=== PATIENT | male | born 1960 | race Caucasian/White ===

== ENCOUNTER 2022-03-28 05:38 | Day surgery (SDC) | payer MEDICARE ==
--- NOTE | 2022-03-25 08:51 | NUR ---
PT UNABLE TO GIVE ACCUTE LIST OF MEDICATIONS EVEN AFTER BEING ASK TO BRING A LIST. RECEIVED ACTIVE MEDICATION LIST FROM PHARMACY. REQUEST TO PCP FOR MEDICATION LIST, HAVE NOT RECEIVED AT THIS TIME. CALL TO [facility] FOR CARDIO PROG NOTE ON 03-24-22 AND HAVE NOT RECEIVED OF THIS TIME, WILL CALL AGAIN TODAY.
--- NOTE | 2022-03-25 12:42 | NUR ---
RECEIVED CARDIOLOGY PROG NOTE. PT IS SEEN IN [facility] AND NOT [place] AFTER TALKING WITH [facility] MEDICAL RECORDS. PCP SENT PROG NOTE AND MEDICATIONS LIST UPDATE.
[~2022-03-28] VITALS: Ht 180.3 cm; Wt 113.6 kg
[~2022-03-28 05:38] MED LIST: ARTIFICIAL TEAR15 M6 OP; ASPIRIN-ACETAM1 EACH PO; COZAAR100 MG PO; DOCUSATE SODIU100 MG PO; DODEX1000 MCG/1; FENOFIBRATE54 MG PO; FLONASE SENSIM5.9 ML; FOLIC ACID1 MG PO; GABAPENTIN300 MG PO; HYDROCORTISONE20 MG PO; MAG-OXIDE400 MG PO; METOPROLOL TART50 MG PO; MULTIVITAMINS1 EAC7 PO; OMEPRAZOLE20 MG PO; OXYCODONE HCL5 MG PO; TORSEMIDE10 MG PO; ULORIC40 MG PO; VITAMIN B-1100 M1 PO; WARFARIN SODIUM3 MG PO; WARFARIN SODIUM4 MG PO; WARFARIN SODIUM5 MG PO
[2022-03-28] MEDS ORDERED: CRESTOR10 MG PO (06:18)
--- NOTE | 2022-03-28 08:15 | NUR ---
03/28/22 0815 Yolis Carbajal 0806 PATIENT ARRIVES TO PACU AWAKE BUT DROWSY. DENIES PAIN OR NAUSEA. ASKING/ANSWERING QUESTIONS APPROPRIATELY. RESP EVEN AND UNLABORED, ROOM AIR SATS >95%. DENIES NEEDS. 0810 HOB ELEVATED. SITTING UP DRINKING JUICE.
--- NOTE | 2022-04-02 15:04 | PATH ---
[facility] [address] [place], [place] [address] Signed SPECIMEN(S): A DUODENAL BIOPSY SPECIMEN(S): B ANTRUM/PYLORUS BIOPSY SPECIMEN(S): C PROXIMAL ESOPHAGEAL BIOPSY SPECIMEN SOURCE: A. DUODENAL BIOPSY B. ANTRUM/PYLORUS BIOPSY C. PROXIMAL ESOPHAGEAL BIOPSY CLINICAL HISTORY: GERD; episodic vomiting. Postop: Del Rosario's, chronic gastritis, erosive duodenitis FINAL PATHOLOGIC DIAGNOSIS: A. Duodenal biopsy: - Benign duodenal mucosa, negative for specific diagnostic abnormality. B. Antrum / pylorus biopsy: - Benign gastric-type mucosa with focal slight chronic inflammation. - Negative for evidence of Helicobacter organisms on routine HE stained sections. C. Proximal esophageal biopsy: - Benign gastric and esophageal mucosa with reactive features and mild chronic inflammation. - Negative for specialized intestinal metaplasia, or dysplasia. - Negative for significantly increased epithelial eosinophils within the esophageal epithelium. JVR:[id number] MICROSCOPIC EXAMINATION: Histologic sections of all submitted blocks are examined by light microscopy. These findings, together with the gross examination, support the pathologic diagnosis. GROSS DESCRIPTION: A. The specimen, labeled and designated "Jimmy Brian, " and designated on the requisition "duodenum biopsy," is received in formalin and consists of one steve soft tissue fragment that is 0.5 cm in greatest dimension. The specimen is entirely submitted in (A1). B. The specimen, labeled and designated "Severo W, " and designated on the requisition "antrum/pylorus biopsy," is received in formalin and consists of two steve soft tissue fragments that measure PATIENT NAME: VENUS BRIAN PATHOLOGY DATE OF : 58 REPORT #: [id number] PHYSICIAN: BRIA ESPOSITO PCP: DILLON JETT MD REPORT IS CONFIDENTIAL AND NOT TO BE RELEASED WITHOUT AUTHORIZATION [facility] [address] [place], [place] [address] Signed 0.3 and 0.6 cm in greatest dimension. The specimen is entirely submitted in (B1). C. The specimen, labeled and designated "Jimmy Brian, " and designated on the requisition "proximal esophagus biopsy," is received in formalin and consists of two white-steve soft tissue fragments that measure 0.3 and 0.6 cm in greatest dimension. The specimen is entirely submitted in (C1). FB (under the direct supervision of a pathologist) The Gross Description was prepared using a voice recognition system. The report was reviewed for accuracy; however, sound-alike word errors, addition and/or deletions may occur. If there is any question about this report, please contact Client Services. PERFORMING LABORATORY: The technical component was performed by [facility], [address] [place] [id number] (CLIA# [id number]). Professional interpretation was performed by [facility] - [facility], [address] [place] [id number] (CLIA#: [id number]). Diagnostician: Russel Álvarez MD Pathologist Electronically Signed 04/02/2022 Copies: ~ PATIENT NAME: VENUS BRIAN PATHOLOGY DATE OF : 58 REPORT #: [id number] PHYSICIAN: BRIA PATHOLOGY PCP: DILLON JETT MD REPORT IS CONFIDENTIAL AND NOT TO BE RELEASED WITHOUT AUTHORIZATION
--- NOTE | 2022-04-02 16:53 | OR ---
[facility] [address] [place], [place] [address] Signed DATE OF OPERATION: 03/28/2022 SURGEON: Thierno Hicks MD PREOPERATIVE DIAGNOSES: 1. Chronic alcoholism. 2. Mildly elevated liver enzymes. POSTOPERATIVE DIAGNOSES: 1. No evidence of esophageal varices. 2. Erosive duodenitis and antral gastritis. 3. 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 PROCEDURE: Esophagogastric duodenoscopy with biopsy. ANESTHESIA: Intravenous sedation, propofol; Jimmy Will CRNA INDICATIONS: This 61-year-old white man has chronic alcoholism, drinking alcohol on a long-standing daily basis. He is noted to have elevated liver enzymes and considered to have cirrhosis of the liver. He complains of episodic vomiting. He has occasional symptoms of reflux. He is on PPI medication. He has no associated dysphagia. He has not been taking Prilosec on a routine basis, only episodically. He is referred for upper endoscopy to better characterize his symptoms. He understands the risks of bleeding, infection, and perforation related to upper endoscopy and wished to proceed. FINDINGS: Erosive duodenitis was noted. Antral gastritis was also noted. He had a small amount of distal Del Rosario esophagus and patchy Del Rosario islands proximally. He had no esophageal varices. CLOtest was negative. DESCRIPTION OF PROCEDURE: The patient was brought to the endoscopy suite and placed in lateral decubitus position given intravenous sedation with propofol infusional technique with full cardiopulmonary monitoring. A bite block was placed. An Olympus video upper endoscope was passed into the hypopharynx. Vocal cords were normal. Scope was advanced to the esophagus, which showed no evidence of esophageal varices. Scope was easily passed into the stomach, which was insufflated with air. Rugal folds were normal. He did have antral gastritis. Electronically Signed By: THIERNO HICKS MD 04/02/22 1653 PATIENT NAME: VENUS BRIAN OPERATIVE REPORT DATE OF : 58 REPORT #: [id number] PHYSICIAN: THIERNO HICKS MD PCP: DILLON ESCALANTE MD REPORT IS CONFIDENTIAL AND NOT TO BE RELEASED WITHOUT AUTHORIZATION [facility] [address] [place], [place] [address] Signed Pylorus was normal. Scope was passed through into the duodenal, which showed erosive changes. There was no sign of actual ulcer. Biopsies were obtained. The scope was withdrawn. On the other hand, biopsies then taken of the antrum for both RUBY and pathologic testing. Retroflexed view showed a small hiatal hernia. The scope was straightened and withdrawn noted. Withdrawal of the scope showed patchy islands of Del Rosario esophagus at approximately 15-20 cm as well. These areas were biopsied. The scope was then removed. The patient taken to the recovery room in good condition. CONCLUDING DIAGNOSES: Longstanding alcoholism and presumptive cirrhosis of liver, but no evidence of portal hypertension manifesting as varices. 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 Erosive duodenitis and antral gastritis. PLAN: We would recommend daily use of Prilosec 20 mg a day and Carafate 1 g p.o. q.i.d. for at least four weeks. He will return to the ongoing care of Dr. Escalante. Quite obviously, he would be best served by cessation of all alcohol intake likely under a monitored program. Thierno Hicks MD JM/MODL /[id number] cc: Dillon Escalante MD Copies: DILLON ESCALANTE MD ~ Electronically Signed By: THIERNO HICKS MD 04/02/22 1653 PATIENT NAME: VENUS BRIAN OPERATIVE REPORT DATE OF : 58 REPORT #: [id number] PHYSICIAN: THIERNO HICKS MD PCP: DILLON ESCALANTE MD REPORT IS CONFIDENTIAL AND NOT TO BE RELEASED WITHOUT AUTHORIZATION
== END 2022-03-28 08:40 | disposition home or self-care (01) ==
LOC: OPS 05:38 → DS 05:38 → OPS 07:30 → DS 10:45 → OPS 10:45
PROVIDERS: ATTEND Surgery
PROC: 0DB98ZX Excision of Duodenum, Via Natural or Artificial Opening Endoscopic, Diagnostic (ICD-10-PCS; principal; 2022-03-28 07:30)
DX: K29.50 Unspecified chronic gastritis without bleeding (principal); K20.90 Esophagitis, unspecified without bleeding; K29.80 Duodenitis without bleeding; K22.70 Barrett's esophagus without dysplasia; K70.30 Alcoholic cirrhosis of liver without ascites; F10.20 Alcohol dependence, uncomplicated; K44.9 Diaphragmatic hernia without obstruction or gangrene; Z79.01 Long term (current) use of anticoagulants; I11.0 Hypertensive heart disease with heart failure; I50.9 Heart failure, unspecified; I42.0 Dilated cardiomyopathy; I48.91 Unspecified atrial fibrillation
CPT/HCPCS: J2704; J7121

== ENCOUNTER 2024-02-29 20:14 | Inpatient (IN) | payer MEDICARE ==
[~2024-02-29] VITALS: Ht 180.3 cm; Wt 116.0 kg
[~2024-02-29 20:14] MED LIST changes: +MULTI-DAY PLUS1 EAC1 PO; -MULTIVITAMINS1 EAC7 PO; +OXYCODONE HCL10 MG PO; -OXYCODONE HCL5 MG PO; +ROSUVASTATIN CA10 MG PO
--- OUTSIDE RECORDS SUMMARY | 2024-02-29 20:21 | XMS ---
PreManage Notification: VENUS BRIAN Security Cafeteria Attendant Events No recent Security Events currently on file CRITERIA MET - [facility] - 2 Visits in 30 Days CARE PROVIDERS There are no care providers on record at this time. Erickson has no Care Guidelines for this patient. Jeimy VISIT COUNT (12 MO.) 1 HEAVEN David TOTAL 2 NOTE: Visits indicate total known visits. ED/UCC VISIT TRACKING (12 MO.) 02/29/2024 20:15 [facility] [place] TYPE: Emergency COMPLAINT: - ABD PAIN 02/29/2024 17:26 [facility] TYPE: Emergency COMPLAINT: - BLOATED_bloated INPATIENT VISIT TRACKING (12 MO.) No inpatient visits to display in this time frame [email or web address]
[2024-02-29] MEDS ORDERED: METOPROLOL SUC100 MG PO (20:36)
[2024-02-29] MEDS ORDERED: FEBUXOSTAT40 MG PO (20:37)
[2024-02-29] MEDS ORDERED: ELIQUIS5 MG PO (20:37)
[2024-02-29 21:48] LABS: BASOPHILS 1.1 % (0-2); EOSINOPHILS 1.8 % (0-6); HEMATOCRIT 39.5 % (35.0-50.0); HEMOGLOBIN 13.6 g/dL (12.0-18.0); LYMPHOCYTES 20.6 % (24-44); MCH 32.7 (27-36); MCHC 34.3 g/dl (30-36); MCV 95.4 fl (81-99); MONOCYTES 9.5 % (0-12); PLATELET COUNT 237 K/uL (140-440); RBC 4.15 M/ul (4.3-5.7); RDW 14.4 (10.5-15.0)
[2024-02-29 22:01] LABS: INR 1.58 (0.80-1.30); PROTIME 18.5 Sec (11.2-14.2)
[2024-02-29 22:09] LABS: ALBUMIN/GLOBULIN RATIO 0.65 (1.1-2.4); ANION GAP 14.2 (7-21); BILIRUBIN, TOTAL 2.8 ng/dL (0.2-1.0); BUN/CREATININE RATIO 9.09 (6.0-28.6); CALCIUM 9.2 mg/dL (8.5-10.1); CREATININE, SERUM 2.09 mg/dL (0.70-1.30); POTASSIUM 4.2 mmol/L (3.5-5.1); PROTEIN, TOTAL 7.6 g/dL (6.4-8.2)
[2024-02-29] MEDS ORDERED: ALBUMIN HUMAN 25% 100 ML BTL IV ONE (23:45)
[2024-03-01] VITALS (10 sets, daily range): BP systolic 121–164; BP diastolic 69–97
[2024-03-01] MEDS ORDERED: LACTULOSE 20 GM/30 ML CUP PO ONE (01:30)
[2024-03-01] MEDS ORDERED: CIPROFLOXACIN 500 MG TAB PO ONE (01:45)
[2024-03-01] MEDS ORDERED: ondansetron HCL 4 MG/2 ML VIAL IV PRN ×2 (02:00→09:45)
--- NOTE | 2024-03-01 03:07 | NUR ---
RNs in room doing new admit work up. Patient began to get agitated. Help was offered but declined.
--- NOTE | 2024-03-01 03:10 | NUR ---
RECIEVED REPORT FROM ED RN. PATIENT ARRIVES VIA STRETCHER. PATIENT AMBULATES FROM STRETCHER TO BED WITHOUT DIFFICULTY. VITALS ASSESSED. PATIENT REPORTING A HEADACHE. ADMISSION COMPLETE WITH THE EXCEPTION OF THE PHYSICAL ASSESSMENT DUE TO PATIENT'S AGITATED/ANXIOUS BEHAVIOR. PATIENT IN BED. TO REDUCE STIMULUS, TURNED OFF LIGHTS PER PATIENT REQUEST. PATIENT DENIES ADDITIONAL NEEDS AT THIS TIME. BED ALARM ACTIVE. CALL LIGHT IN REACH.
[2024-03-01 03:17] LABS: APPEARANCE, BODY FLUID BLOODY; MONONUCLEAR CELLS, BODY FLUID 76; PMNS, BODY FLUID 24; RBC, BODY FLUID 139250; WBC, BODY FLUID 3375
--- NOTE | 2024-03-01 03:25 | NUR ---
PHONE CALL TO PROVIDER REGARDING PATIENT'S HEADACHE AND ANXIOUS BEHAVIOR. VERBAL ORDERS RECIEVED VERIFIED BY REPEAT BACK. ORDERS ENTERED.
[2024-03-01] MEDS ORDERED: ACETAMINOPHEN 325 MG TAB PO PRN (03:30)
--- NOTE | 2024-03-01 04:14 | NUR ---
IN ROOM RESPONDING TO BED ALARM. PATIENT UP TO GO TO THE BATHROOM. PATIENT AMBULATES TO THE BATHROOM AND BACK TO BED WITHOUT DIFFICULTY. PATIENT ABLE TO VOID WITHOUT DIFFICULT. PATIENT AGITATED/ANXIOUS BEHAVIOR HAS DECREASED WITH REST. PATIENT DENIES ADDITIONAL NEEDS AT THIS TIME. BED ALARM ACTIVE. CALL LIGHT IN REACH.
[2024-03-01 05:24] LABS: BASOPHILS 0.7 % (0-2); EOSINOPHILS 3.2 % (0-6); HEMATOCRIT 32.6 % (35.0-50.0); HEMOGLOBIN 11.3 g/dL (12.0-18.0); LYMPHOCYTES 23.3 % (24-44); MCH 32.7 (27-36); MCHC 34.7 g/dl (30-36); MCV 94.4 fl (81-99); MONOCYTES 10.7 % (0-12); NEUTROPHILS 62.1 % (39-80); PLATELET COUNT 152 K/uL (140-440); RBC 3.46 M/ul (4.3-5.7); RDW 14.3 (10.5-15.0)
--- NOTE | 2024-03-01 05:30 | NUR ---
IN ROOM RESPONDING TO CALL LIGHT. PATIENT UP TO THE BATHROOM. PATIENT PROVIDED WITH URINAL TO COLLECT NECESSESARY SAMPLE. PATIENT UNABLE TO VOID AT THIS TIME. PATIENT AMBULATED BACK TO BED WITHOUT DIFFICULTY. ASSESSMENT COMPLETED. PATIENT DENIES ADDITIONAL NEEDS AT THIS TIME. BED ALARM ACTIVE. CALL LIGHT IN REACH.
[2024-03-01 05:38] LABS: ALBUMIN 2.6 g/dL (3.4-5.0); ALBUMIN/GLOBULIN RATIO 0.7 (1.1-2.4); ANION GAP 10.7 (7-21); BILIRUBIN, TOTAL 2.2 ng/dL (0.2-1.0); BUN/CREATININE RATIO 10.63 (6.0-28.6); CALCIUM 8.4 mg/dL (8.5-10.1); CREATININE, SERUM 1.88 mg/dL (0.70-1.30); MAGNESIUM 1.9 mg/dL (1.8-2.4); POTASSIUM 3.7 mmol/L (3.5-5.1); PROTEIN, TOTAL 6.3 g/dL (6.4-8.2)
--- NOTE | 2024-03-01 08:36 | NUR ---
PATIENT IN BED AT THIS TIME. LINE TESTER WENT INTO PATIENTS ROOM FOR HOURLY ROUNDS. PATIENT STATED THAT HE HAS AN UPSET STOMACH AND NEEDED TO USE THE RESTROOM. LINE TESTER NOTIFIED RN ABOUT PATIENTS PAIN AND INSTRUCTED PATIENT TO VOID IN TOILET HAT TO GET URINE SAMPLE. PATIENT ENDED UP REMOVING BOTH HATS FROM TOILET AND THEN VOIDED INTO TOILET, RN WAS NOTIFIED. CALL LIGHT WITHIN REACH, BED ALARMS ON, NO FURTHER NEEDS AT THIS TIME.
[2024-03-01] MEDS ORDERED: LACTULOSE 20 GM/30 ML CUP PO SCH ×3 (09:00→21:00)
[2024-03-01] MEDS ORDERED: METOPROLOL SUCCINATE 50 MG TABCR PO SCH (09:00)
[2024-03-01] MEDS ORDERED: CEFTRIAXONE/SODIUM CHLORIDE 2 GM/100 ML PIGGYBACK IV SCH (09:00)
[2024-03-01] MEDS ORDERED: TORSEMIDE 5 MG TAB PO SCH (09:00)
--- NOTE | 2024-03-01 09:50 | NUR ---
Spoke with Arron. He states he lives in [place] across the [address] from his exwife. His and children assist him. He plans on return to home when he is cleared medically. He has cane. His family help him with housekeeping, shoping, transport. He does his own cooking. He has help with his utility bill and food stamps. He has enough food for the month. He denies needs. Pt remains cognitively somewhat off. He has difficulty answering questions and is easily confused when asked questions. He denies needs. Per Dr. Vaughn, pt will remain for a few days for medications.
--- NOTE | 2024-03-01 10:16 | NUR ---
PATIENT IN BED, UPHOLSTERY COVERS INSPECTOR CHARTED VITALS AND I&O'S. CALL LIGHT WITHIN REACH, NO FURTHER NEEDS AT THIS TIME.
[2024-03-01] MEDS ORDERED: GABAPENTIN300 MG PO (10:30)
[2024-03-01] MEDS ORDERED: FLUTICASONE PRO16 GM NAS (10:31)
[2024-03-01] MEDS ORDERED: VITAMIN D350 MC3 PO (10:33)
[2024-03-01] MEDS ORDERED: ARTIFICIAL TEAR15 M6 OU (10:33)
[2024-03-01] MEDS ORDERED: EXCEDRIN EXTRA1 EAC1 PO (10:36)
--- NOTE | 2024-03-01 10:45 | NUR ---
VISITED DURING SPIRITUAL CARE ROUNDS. PT APPEARED TO BE SLEEPING. DID NOT DISTURB. PROVIDED PRAYER.
[2024-03-01] MEDS ORDERED: METOPROLOL SUCCINATE 100 MG TABCR PO SCH (11:08)
[2024-03-01] MEDS ORDERED: PHARMACY RENAL DOSE ADJUSTMENT 1 DOSE MISC PO SCH (12:00)
--- NOTE | 2024-03-01 12:24 | NUR ---
PATIENT IN BED, TELEVISION MAINTENANCE MAN WENT INTO PATIENTS ROOM FOR HOURLY ROUNDS. CALL LIGHT WITHIN REACH, NO FURTHER NEEDS.
--- NOTE | 2024-03-01 13:01 | NUR ---
UR CLINICAL REVIEW: 2MN LISSETH, MEETS INPT CRITERIA. MEDICARE FROM OBS TO INPT 03/01/24 @ 0911 ORDER MATCHES REG AUTH NOT REQUIRED PER MEDICARE RULES PLAN TO DC TO HOME WHEN MEDICALLY STABLE.
[2024-03-01 13:13] LABS: BILIRUBIN, URINE NEGATIVE (negative); BLOOD/HGB, URINE NEGATIVE (Negative); KETONE, URINE NEGATIVE (Negative); LEUK ESTERASE, URINE NEGATIVE (negative); NITRITE, URINE NEGATIVE (negative)
--- NOTE | 2024-03-01 13:25 | NUR ---
PT RESTING IN BED, STATES HE "WANTS TO NAP". CALL LIGHT WITHIN REACH, NO REQUESTS AT THIS TIME.
[2024-03-01 13:34] LABS: AMPHETAMINES, URINE NEGATIVE (NEGATIVE); BARBITURATES, URINE NEGATIVE (NEGATIVE); BENZODIAZEPINE, URINE NEGATIVE (NEGATIVE); BUPRENORPHINE, URINE NEGATIVE (NEGATIVE); CANNABINOID, URINE NEGATIVE (NEGATIVE); COCAINE, URINE NEGATIVE (NEGATIVE); ECSTASY, URINE NEGATIVE (NEGATIVE); FENTANYL, URINE NEGATIVE (NEGATIVE); METHADONE, URINE NEGATIVE (NEGATIVE); OPIATES, URINE POSITIVE (NEGATIVE); OXYCODONE, URINE POSITIVE (NEGATIVE); PHENCYCLIDINE, URINE NEGATIVE (NEGATIVE)
[2024-03-01] MEDS ORDERED: TORSEMIDE20 MG PO (13:36)
--- NOTE | 2024-03-01 13:36 | NUR ---
MED REC COMPLETE
[2024-03-01] MEDS ORDERED: ALBUMIN HUMAN 25% 100 ML BTL IV SCH ×4 (14:00→22:00)
--- NOTE | 2024-03-01 14:15 | NUR ---
PATIENT IN BED AT THIS TIME. BILINGUAL SPEECH LANGUAGE PATHOLOGIST CHARTED VITALS AND I&O'S, PATIENT WANTED LUNCH TRAY LEFT IN ROOM. CALL LIGHT WITHIN REACH, NO FURTHER NEEDS AT THIS TIME.
--- NOTE | 2024-03-01 17:04 | NUR ---
PT AMBULATED TO RESTROOM WITH SBA. PT URINATED AND PASSED GAS. PT BACK TO BED WITH FAMILY AT BEDSIDE. CALL LIGHT WITHIN REACH, NO REQUESTS AT THIS TIME.
--- NOTE | 2024-03-01 19:05 | NUR ---
RECIEVED REPORT FROM DAYSNCFT RN. PATIENT LAYING IN BED ON BACK WITH EYES CLOSED. RESPIRATIONS EVEN AND ULABORED. TELE #[address], A-FIB RHYTHM. NO NEEDS IDENTIFIED AT THIS TIME. BED ALARM ACTIVE. CALL LIGHT IN REACH.
[2024-03-01] MEDS ORDERED: MELATONIN 3 MG TAB PO SCH ×2 (21:00)
--- NOTE | 2024-03-01 23:04 | NUR ---
IN ROOM TO ADMINISTER MEDICATIONS, SEE E-MAR. PATIENT TELEMETRY LEADS REATTACHED. PATIENT RESTING IN BED WITH EYES CLOSED. PATIENT DENIES ADDITIONAL NEEDS AT THIS TIME. CALL LIGHT IN REACH. BED ALARM ACTIVE.
[2024-03-02] VITALS (9 sets, daily range): BP systolic 123–146; BP diastolic 70–89
--- NOTE | 2024-03-02 00:20 | NUR ---
IN ROOM TO ROUND ON PATIENT. IV MEDICATION INFUSION COMPLETED. PATIENT RESTING ON BACK WITH EYES CLOSED. RESRPIRATIONS EVEN AND UNLABORED. TELE #[address], A-FIB, HR 80s. NO NEEDS IDENTIFIED AT THIS TIMES. CALL LIGHT IN REACH. BED ALARM ACTIVE.
--- NOTE | 2024-03-02 01:20 | NUR ---
BED ALARM SOUNDING. PT UP TO BR WITH MINIMAL SBA TO VOID AND HAVE XL LIQUID BM. GAIT STEADY. BACK TO BED, LINDA WELL. NO FURTHER NEEDS. BED ALARM IN PLACE.
--- NOTE | 2024-03-02 02:50 | NUR ---
IN ROOM TO ROUND ON PATIENT. PATIENT RESTING IN BED WITH EYES CLOSED. RESPIRATIONS EVEN AND UNLABORED. NO NEEDS IDENTIFIED AT THIS TIME. TELE #[address] BED ALARM ACTIVE. CALL LIGHT IN REACH.
--- NOTE | 2024-03-02 05:33 | NUR ---
IN ROOM TO ASSESS PATIENT. ASSESSMENT COMPLETED. PATIENT AMBULATED TO THE BATHROOM AND BACK TO BED WITHOUT DIFFICULTY. VITALS COMPLETE. PATIENT DENIES ADDITIONAL NEEDS AT THIS TIME. TELE #[address] CALL LIGHT IN REACH. BED ALARM ACTIVE.
[2024-03-02 05:34] LABS: BASOPHILS 0.9 % (0-2); EOSINOPHILS 3.4 % (0-6); HEMATOCRIT 30.2 % (35.0-50.0); HEMOGLOBIN 10.5 g/dL (12.0-18.0); LYMPHOCYTES 27.4 % (24-44); MCH 32.7 (27-36); MCHC 34.8 g/dl (30-36); MCV 94.1 fl (81-99); MONOCYTES 10.6 % (0-12); NEUTROPHILS 57.7 % (39-80); PLATELET COUNT 117 K/uL (140-440); RBC 3.21 M/ul (4.3-5.7); RDW 14.7 (10.5-15.0)
[2024-03-02 05:50] LABS: ALBUMIN 3.7 g/dL (3.4-5.0); ALBUMIN/GLOBULIN RATIO 1.61 (1.1-2.4); ANION GAP 12.4 (7-21); BILIRUBIN, TOTAL 1.9 ng/dL (0.2-1.0); BUN/CREATININE RATIO 12.15 (6.0-28.6); CALCIUM 8.7 mg/dL (8.5-10.1); CREATININE, SERUM 1.81 mg/dL (0.70-1.30); MAGNESIUM 1.9 mg/dL (1.8-2.4); PHOSPHORUS, INORGANIC 3.9 mg/dL (2.5-4.9); POTASSIUM 3.4 mmol/L (3.5-5.1)
--- NOTE | 2024-03-02 05:53 | NUR ---
IN ROOM RESPONDING TO CALL LIGHT. PATIENT STATES DRESSING TO ABDOMEN IS "ITCHY AND MAKING MY SKIN BURN". OPEN SORE FROM PATIENT SCRATCHING AT TAPE PRESENT ON MIDDLE ABDOMEN. DRESSING AND TAPE FROM PARACENTISIS REMOVED. PUNCTURE SITE AND OTHER SCABS ON ABDOMEN TREATED WITH TRIPLE ANTIBIOTIC OINTMENT AND LEFT OPEN TO AIR PER PATIENT'S REQUEST. PATIENT DENIES ADDITIONAL NEEDS AT THIS TIME. CPOX IN PLACE. TELE #[address] CALL LIGHT IN REACH. BED ALARM ACTIVE.
--- NOTE | 2024-03-02 07:15 | NUR ---
ASSESSMENT COMPLETE. PT SITTING IN BED WITH NO REQUESTS. CALL LIGHT WITHIN REACH.
--- NOTE | 2024-03-02 07:59 | NUR ---
PATIENT SLEEPING IN BED AT THIS TIME. SHUTTLE ROUTE VEHICLE OPERATOR WENT INTO PATIENTS ROOM FOR HOURL ROUNDS. CALL LIGHT WITHIN REACH, NO FURTHER NEEDS AT THIS TIME.
[2024-03-02] MEDS ORDERED: POTASSIUM CHLORIDE 10 MEQ TABCR PO ONE (08:00)
--- NOTE | 2024-03-02 08:15 | NUR ---
PT AMBULATED TO RESTROOM WITH SBA, TOLERATED WELL. PT SITTING AT SIDE OF BED EATING BREAKFAST, NO REQUESTS AT THIS TIME. CALL LIGHT WITHIN REACH.
--- NOTE | 2024-03-02 09:45 | NUR ---
Pt sleeping, not awakened. NO change in plan for CM at this time. Per 8:30 meeting pt will need [address] Banuelos report.
--- NOTE | 2024-03-02 10:10 | NUR ---
PT RESTING IN BED WITH EYES CLOSED. RESPIRATIONS EVEN AND UNLABORED. BED ALARM ON AND CALL LIGHT WITHIN REACH.
--- NOTE | 2024-03-02 11:24 | NUR ---
PT NOT AVAILABLE FOR VISIT. PROVIDED PRAYER.
--- NOTE | 2024-03-02 12:38 | NUR ---
PT RESTING IN BED. LUNCH AT BEDSIDE TABLE. PT STATES HE WANTS TO WAIT "A FEW MINUTES" TO EAT. NO REQUESTS AT THIS TIME.
--- NOTE | 2024-03-02 13:00 | NUR ---
ASKED PT IF HE WOULD TAKE A WALK IN THE WOOD, PT DECLINED. PT UP AMBULATING TO RESTROOM AND BACK IN ROOM.
--- NOTE | 2024-03-02 14:46 | NUR ---
PATIENT IN BED AT THIS TIME. OPERATIONS SUPPORT REPRESENTATIVE CHARTED VITALS AND I&O'S. CALL LIGHT WITHIN REACH, NO FURTHER NEEDS AT THIS TIME.
--- NOTE | 2024-03-02 14:56 | NUR ---
PT'S 1500 MED HELD AT THIS TIME SINCE PT IS NPO FOR ABD .
--- NOTE | 2024-03-02 16:00 | NUR ---
ABD US COMPLETED. PT RESTING IN BED WATCHING TV, BUT AMBULATES TO AND FROM RESTROOM. CALL LIGHT WTIHIN REACH AND BED ALARM ON.
--- NOTE | 2024-03-02 17:48 | EKG ---
[facility] [address] [facility] [place] [address] Signed Atrial fibrillation Low voltage QRS Possible Inferior infarct , age undetermined Abnormal ECG When compared with ECG of 24-MAR-2022 10:00, Borderline criteria for Inferior infarct are now present Nonspecific T wave abnormality now evident in Inferior leads Nonspecific T wave abnormality now evident in Anterior leads Confirmed by Alexei Vaughn MD ([id number]) on 03/02/2024 5:48:51 PM Electronically Signed By: ALEXEI VAUGHN MD 03/02/24 1748 PATIENT NAME: VENUS BRIAN Electrocardiogram DATE OF : 58 PHYSICIAN: ALEXEI VAUGHN MD REPORT #: [id number] REPORT IS CONFIDENTIAL AND NOT TO BE RELEASED WITHOUT AUTHORIZATION
[2024-03-02] MEDS ORDERED: METOPROLOL TARTRATE 50 MG TAB PO ONE (18:00)
[2024-03-02] MEDS ORDERED: METOPROLOL TARTRATE 5 MG/5 ML VIAL IV ONE (18:00)
--- NOTE | 2024-03-02 18:15 | NUR ---
CALLED DR ROMAN REGARDING INCREASING HR. ORDERED IV AND PO METOPROLOL
--- NOTE | 2024-03-02 19:13 | NUR ---
Pt report received from JACK Yun. Pt is A&O, resting supine in bed with HOB elevated, television on. White board updated. Pt has several questions for the doctor and agrees to address them in the morning if the doctor does not come to the floor this evening. Pt states that he uses an "inhaler" at home when he gets short of breath, like he experienced earlier on day shift. He also states that he takes 100mg metoprolol, extended release, daily. He expressed concern about making sure his automotive alignment specialist shouldn't be made aware of his stay here. Pt denies further needs at this time. Call light in reach.
[2024-03-02] MEDS ORDERED: APIXABAN 5 MG TAB PO SCH (21:00)
--- NOTE | 2024-03-03 00:26 | NUR ---
bedside report received from kate carolina, pt awake and recently up to bathroom to void. bed alarm on and call light in reach. various scabs noted to abd, pt states scabs from, "the blisters". abd tight overall with distention, no tenderness noted with palpation. on ra, rr even and unlabored. tele #[address], afib per monitor with hr 80's.
--- NOTE | 2024-03-03 02:37 | NUR ---
ROUNDED ON pt, pt RESTING IN BED. ON RA, RR EVEN AND UNLABORED. NO DISTRESS NOTED. TELE REMAINS IN PLACE, HX AFIB. FOCUSED ABD ASSESSMENT COMPLETE, NO ACUTE CHANGES FROM START OF THIS RN'S CARE. BED ALARM ON AND CALL LIGHT IN REACH. pt DENIES NEEDS OR CONCERNS.
--- NOTE | 2024-03-03 03:08 | NUR ---
pt REQUESTING REMAINING FLUID FROM FLUID RESTRICTION, pt VERBALIZED UNDERSTANDING. pt THEN UP SBA TO BATHROOM TO HAVE BM AND VOID, pt VOIDED 400MLS URINE OUTPUT. pt BACK IN BED, ALARM RESUMED. CALL LIGHT IN REACH.
--- NOTE | 2024-03-03 04:46 | NUR ---
ROUNDED ON pt, pt RESTING IN BED WITH EYES CLOSED. ON RA, RR EVEN AND UNLABORED. BED ALARM REMAINS ON FOR SAFETY AND CALL LIGHT IN REACH.
[2024-03-03 05:31] LABS: BASOPHILS 0.2 % (0-2); EOSINOPHILS 3.6 % (0-6); HEMATOCRIT 34.6 % (35.0-50.0); HEMOGLOBIN 11.8 g/dL (12.0-18.0); LYMPHOCYTES 21.4 % (24-44); MCH 32.6 (27-36); MCHC 34.2 g/dl (30-36); MCV 95.4 fl (81-99); MONOCYTES 8.2 % (0-12); NEUTROPHILS 66.6 % (39-80); PLATELET COUNT 123 K/uL (140-440); RBC 3.63 M/ul (4.3-5.7); RDW 14.7 (10.5-15.0)
--- NOTE | 2024-03-03 05:32 | NUR ---
pt BACK IN BED FOLLOWING BM AND VOID. BED ALARM RESUMED AND CALL LIGHT IN REACH. I&O'S COLLECTED. pt DENIES ADDITIONAL NEEDS OR CONCERNS, CREDIT ADVISOR IN ROOM FOR AM VITALS.
[2024-03-03 05:36] VITALS: BP 138/78
[2024-03-03 06:00] LABS: ALBUMIN 3.6 g/dL (3.4-5.0); ALBUMIN/GLOBULIN RATIO 1.33 (1.1-2.4); ANION GAP 11.7 (7-21); BILIRUBIN, TOTAL 1.7 ng/dL (0.2-1.0); BUN/CREATININE RATIO 11.37 (6.0-28.6); CREATININE, SERUM 1.67 mg/dL (0.70-1.30); MAGNESIUM 1.9 mg/dL (1.8-2.4); PHOSPHORUS, INORGANIC 3.8 mg/dL (2.5-4.9); POTASSIUM 3.7 mmol/L (3.5-5.1); PROTEIN, TOTAL 6.3 g/dL (6.4-8.2)
--- NOTE | 2024-03-03 06:23 | NUR ---
pt HAD UNEVENTFUL NIGHT, SLEPT OFF AND ON THIS SHIFT. BED ALARM ON TO ENSURE SAFETY, pt FAIRLY STEADY ON FEET-SBA. IMPULSIVE AT TIMES WHEN GETTING OOB. VSS, ON RA. ON 2GM SODIUM DIET WITH 2L FLUID RESTRICTION, TOLERATING WELL. NO S/SX OF ETOH WITHDRAWL. A/O TO ALL BUT DATE, REORIENTS EASILY. IV SITE WNL, SALINE LOCKED.
--- NOTE | 2024-03-03 07:10 | NUR ---
RECIEVED SHIFT REPORT. PT IS RESTING IN BED, EYES CLOSED, BREATHING EVEN AND UNLABORED. CALL WITHIN REACH.
[2024-03-03] MEDS ORDERED: METOPROLOL SUCCINATE 100 MG TABCR PO SCH (09:00)
[2024-03-03] MEDS ORDERED: ALBUMIN HUMAN 25% 100 ML BTL IV SCH (09:00)
[2024-03-03] MEDS ORDERED: LACTULOSE 20 GM/30 ML CUP PO SCH (09:00)
[2024-03-03 09:59] VITALS: BP 138/81
[2024-03-03] MEDS ORDERED: LOSARTAN POTASSIUM 100 MG TAB PO SCH (10:24)
[2024-03-03] MEDS ORDERED: POTASSIUM CHLORIDE 10 MEQ TABCR PO ONE (10:30)
[2024-03-03] MEDS ORDERED: FUROSEMIDE 40 MG/4 ML VIAL IV ONE (10:30)
--- NOTE | 2024-03-03 11:59 | NUR ---
THIS MORNING WHEN I WENT IN TO UPDATE THE WHITE BOARD PATIENT WAS SLEEPING.
--- NOTE | 2024-03-03 12:02 | NUR ---
WHILE PATIENT WAS IN THE BATHROOM THIS MORNING I HEATED UP HIS BREAKFAST. THAN WHEN I CAME BACK I ASKED HIM IF HE WOULD LIKE TO BRUSH HIS TEETH AND TAKE A SHOWER HE SAID HE WANTED TO WAIT UNTIL HIS GOT HERE. SO I SET HIS SHOWER UP FOR HIM.
[2024-03-03 14:05] VITALS: BP 139/75
--- NOTE | 2024-03-03 14:31 | NUR ---
Spoke with Arron, he denies needs.
--- NOTE | 2024-03-03 14:56 | NUR ---
CHECKED ON PATIENT. PATIENT WAS SLEEPING.
[2024-03-03 17:32] VITALS: BP 136/76
[2024-03-03 17:39] VITALS: BP 136/76
--- NOTE | 2024-03-03 18:14 | NUR ---
FEDERAL APPELLATE LAW CLERK SET PATIENT UP FOR SHOWER, FAMILY IN ROOM AT THIS TIME. CALL LIGHT WITHIN REACH, NO FURTHER NEEDS AT THIS TIME.
--- NOTE | 2024-03-03 19:15 | NUR ---
SHIFT REPORT RECEIVED FROM DAYSHIFT RN CITLALI/MARIA FERNANDA AT BEDSIDE. pt AWAKE AND RESTING IN BED, VISITORS IN ROOM. IV SITE SALINE LOCKED, RECENTLY SHOWERED PER REPORT. ON RA, RR EVEN AND UNLABORED. NO DISTRESS NOTED. CALL LIGHT IN REACH.
--- NOTE | 2024-03-03 20:00 | NUR ---
SPOUSE LEOLA BRIAN ([phone]) VERBALIZES DESIRE TO SPEAK TO HOSPITALIST VIA PHONE FOLLOWING TOMORROW'S ROUNDS FOR UPDATE, STATES, "I'M NOT SURE IF I'LL BE ABLE TO GET HERE IN TIME IN PERSON TOMORROW, BUT IF I CAOULD SPEAK TO HIM OVER THE PHONE THAT WOULD BE GREAT". SHEET METAL WORKER APPRENTICE TING UPDATED AND THIS RN COLLECTED SPOUSE'S NUMBER-SEE ABOVE.
--- NOTE | 2024-03-03 20:08 | NUR ---
CONFIRMED WITH EDILBERTO OAKES TO BE DC'D. BOX CAR BRACERJACK MAGUIRE UPDATING ORDER.
[2024-03-03 20:36] VITALS: BP 120/59
--- NOTE | 2024-03-03 20:39 | NUR ---
GUIDE WINDER OBTIANED VITALS AND I&O. DINNER TRAY TAKEN. PT STATES NO FURTHER NEEDS AT THIS TIME. CALL LIGHT WITHIN REACH.
--- NOTE | 2024-03-03 21:00 | NUR ---
ASSESSMENT COMPLETE, SCHEDULED MEDS GIVEN. DISCUSSED ADMINISTRATION OF ALBUMIN WITH TELEPHARMACY. IV SITE WNL, FLUSHES EASILY. ABD DISTENTION REMAINS NOTED, SCATTERED SCABS NOTED TO ABD, TRIPLE ANTIBIOTIC OINTMENT PROVIDED PER pt REQUEST, BUTTON FACING MACHINE OPERATOR. NO TENDERNESS NOTED WITH PALPATION. pt STATES, "I THINK IT'S SOFTER" WHEN ASKED COMPARED TO EARLIER ON DAYSHI. BED ALARM ON FOR SAFETY, CALL LIGHT IN REACH.
--- NOTE | 2024-03-03 21:40 | NUR ---
ALBUMIN INFUSION COMPLETED AND IV SITE DRESSED, PER DAYSHIFT DRESSING GOT WET FROM SHOWER, SMALL AMOUNT BLOOD NOTED UNDER DRESSING. NEW DRESSING IN PLACE AND IV SITE WNL PRE AND POST DRESSING CHANGE, SALINE LOCKED. BED ALARM ON AND CALL LIGHT IN REACH, pt DENIES NEEDS OR CONCERNS.
--- NOTE | 2024-03-03 22:55 | NUR ---
BED ALARM GOING OFF, pt SITTING ON EDGE OF BED. UP SBA TO BATHROOM, INSTRUCTED TO USE CALL LIGHT WHEN DONE, pt VERBALIZED UNDERSTANDING. CALL LIGHT IN BATHROOM IN REACH.
--- NOTE | 2024-03-03 23:04 | NUR ---
BEV MAO ASSISTING pt BACK TO BED.
[2024-03-04] VITALS (10 sets, daily range): BP systolic 117–136; BP diastolic 68–78
--- NOTE | 2024-03-04 01:02 | NUR ---
INFORMED BY ROTARY SWAGING MACHINE OPERATOR pt RECENTLY ASKING FOR POSSIBLE PRN PAIN MEDICATION FOR BACK PAIN, THIS RN IN ROOM AND pt RESTING IN BED WITH EYES CLOSED. ON RA, RR EVEN AND UNLABORED. WILL ALLOW pt TO CONTINUE TO REST/PROMOTE SLEEP. CALL LIGHT IN REACH AND BED ALARM ON FOR SAFETY.
--- NOTE | 2024-03-04 01:44 | NUR ---
ROUNDED ON pt, pt AWAKE AND RESTING IN BED. REPROTS SOME SCIATICA PAIN, PRN TYLENOL OFFERED. DECLINED BY pt, REPORTS TAKING GABAPENTIN AT HOME. ICE/HEAT PACK ALSO DECLINED BY pt, BED ALARM ON AND CALL LIGHT IN REACH. SPRITE PROVIDED PER pt REQUEST.
--- NOTE | 2024-03-04 02:55 | NUR ---
FOCUSED ASSESSMENT COMPLETE, NO ACUTE CHANGES. ABD DISTENTION REMAINS MODERATE/SEVERE, BUT WHEN ASKED, pt STATES, "IT FEELS A LITTLE SOFTER". pt DENIES NAUSEA. BT ACTIVE. NO NEEDS OR CONCERNS VERBALIZED KAREEM ASKED, CALL LIGHT IN REACH.
--- NOTE | 2024-03-04 04:25 | NUR ---
CALL LIGHT ANSWERED. PT NEEDED TO USE BATHROOM. PHARMACY TECH CUSTOMER SERVICE SBA TO BATHROOM. PT HAD BM AND ASSISTED BACK TO BED. OUTPUT MEASURED. PHARMACY TECH CUSTOMER SERVICE OBTAINED AND DOCUMENTED VITALS AND I&O. PT STATES NO FURTHER NEEDS AT THIS TIME. PT IS SITTING AT EDGE OF BED WITH BED ALARM ON AND CALL LIGHT IN REACH.
[2024-03-04 05:22] LABS: EOSINOPHILS 2.8 % (0-6); HEMATOCRIT 30.6 % (35.0-50.0); HEMOGLOBIN 10.5 g/dL (12.0-18.0); LYMPHOCYTES 23.5 % (24-44); MCH 32.9 (27-36); MCHC 34.5 g/dl (30-36); MCV 95.3 fl (81-99); MONOCYTES 8.8 % (0-12); NEUTROPHILS 60.9 % (39-80); PLATELET COUNT 108 K/uL (140-440); RBC 3.21 M/ul (4.3-5.7)
--- NOTE | 2024-03-04 05:32 | NUR ---
ROUNDED ON pt, pt RECENTLY AWOKEN BY LAB FOR AM BLOOD WORK. pt STATES JOKINGLY, "I DON'T KNOW WHY THEY GOTTA WAKE ME UP THIS EARLY FOR THREE SECONDS OF WORK". pt DENIES ADDITIONAL NEEDS OR CONCERNS, BED ALARM ON AND CALL LIGHT IN REACH. pt EDUCATED ON POC IN HOSPITAL SETTINGS, pt VERBALZIED UNDERSTANDING, STATING, "I KNOW I'M JUST BEING A BABY. THEY HAVE WORK TO DO".
[2024-03-04 05:36] LABS: ALBUMIN 3.9 g/dL (3.4-5.0); ALBUMIN/GLOBULIN RATIO 1.63 (1.1-2.4); ANION GAP 12.4 (7-21); BILIRUBIN, TOTAL 1.4 ng/dL (0.2-1.0); BUN/CREATININE RATIO 12.08 (6.0-28.6); CALCIUM 8.7 mg/dL (8.5-10.1); CREATININE, SERUM 1.49 mg/dL (0.70-1.30); POTASSIUM 3.4 mmol/L (3.5-5.1); PROTEIN, TOTAL 6.3 g/dL (6.4-8.2)
--- NOTE | 2024-03-04 07:41 | NUR ---
RECIEVED HAND OFF FROM NUMBERER AND WIRER RN, PT RESTING COMFORTABLY IN BED WITH EYES CLOSED CALL LIGHT WITHIN REACH.
[2024-03-04] MEDS ORDERED: POTASSIUM CHLORIDE 10 MEQ TABCR PO ONE ×3 (09:00→17:00)
[2024-03-04] MEDS ORDERED: FUROSEMIDE 40 MG/4 ML VIAL IV SCH (09:00)
[2024-03-04] MEDS ORDERED: GABAPENTIN 300 MG CAP PO PRN (09:30)
--- NOTE | 2024-03-04 10:00 | NUR ---
Spoke with Bal. Attempted to have him sign the IM letter and he declined. Updated I am not here on the weekend and again asked if he has any needs. He denies. He states his exwife will pick him up and drive him home. FAmily will assist.
[2024-03-04] MEDS ORDERED: SPIRONOLACTONE 100 MG TAB PO SCH (13:45)
--- NOTE | 2024-03-04 15:20 | NUR ---
PT RESTING IN BED WITH EYES CLOSED PT EASLY AROUSABLE. PT MEDS ADMINISTERED SEE EMAR. PT HAS CALL LIGHT WITHIN REACH PT HAS NO REQIESTS AT THIS TIME.
[2024-03-04] MEDS ORDERED: GABAPENTIN 300 MG CAP PO ONE (15:30)
--- NOTE | 2024-03-04 15:44 | NUR ---
DISCUSSED GABEPETIN DOSAGE WITH PT. ORDER FIXED AND GIVEN CORRECT DOSE TO PT AT THIS TIME.
[2024-03-04] MEDS ORDERED: GABAPENTIN 600 MG TAB PO PRN (15:45)
--- NOTE | 2024-03-04 17:56 | NUR ---
PT SITTING ON EDGE OF BED EATING DINNER. PT REPORTS NO PAIN AT THIS TIME. PT ALERT AND CUMMINICATED NO CONCERNS AT THIS TIME. PT CALL LIGHT WITHIN REACH AND BED ALARM ON FOR PATIENT SAFETY.
[2024-03-04 18:15] LABS: BUN/CREATININE RATIO 11.17 (6.0-28.6); CREATININE, SERUM 1.7 mg/dL (0.70-1.30)
--- NOTE | 2024-03-04 19:10 | NUR ---
Pt report received from RNs Toy Jasso and CITLALI. Pt is resting with eyes closed, supine, in bed, breathing is regular, even, and non-labored. Television on. Side rails up x4, white board updated. Call light in reach.
[2024-03-05] VITALS (7 sets, daily range): BP systolic 100–127; BP diastolic 41–79
--- NOTE | 2024-03-05 02:02 | NUR ---
GOT REPORT FROM QUICK MIXER OPERATOR RN.
--- NOTE | 2024-03-05 02:11 | NUR ---
INTO CHECK ON PATIENT. PATIENT CURRENTLY SLEEPING, REGULAR RESPIRATIONS NOTED. PATIENT HAS HOB SLIGHTLY ELEVATED. BED IN LOW POSITION. BED ALARM IS ON.
--- NOTE | 2024-03-05 03:33 | NUR ---
CALL LIGHT ANSWERED. PT NEEDED TO USE BATHROOM. COUNTER POCKET SEWER SBA TO BATHROOM. PT VOIDED AND ASSISTED BACK TO BED. PT STATES NO FURTHER NEEDS AT THIS TIME. PT SITTING AT EDGE OF BED WITH CALL LIGHT WITHIN REACH AND BED ALARM ON.
--- NOTE | 2024-03-05 03:53 | NUR ---
PATIENT UP TO SIDE OF BED TO STRETCH HIS LEG OUT. PATIENT GIVEN 7 UP PER HIS REQUEST FOR A DRINK BY [employer] AND [employer]. THIS NURSE IS MONITORING HIS FLUID INTAKE. PT DENIES ANY OTHER CARES AT THIS TIME.
--- NOTE | 2024-03-05 04:39 | NUR ---
INTO VISIT WITH PATIENT. PATIENT STATES HIS ABDOMEN IS DOING BETTER. PATIENT STILL HAS SORES ON ABDOMEN THAT HAVE TURNED INTO SCABS. PATIENT FEELS THEY WERE WATER BLISTERS SINCE HIS SKIN STRETCHED. NO ABDOMINAL PAIN. ACTIVE BOWEL TONES.
[2024-03-05 05:20] LABS: HEMOGLOBIN 11.3 g/dL (12.0-18.0)
[2024-03-05 05:23] LABS: BASOPHILS 0.7 % (0-2); EOSINOPHILS 3.7 % (0-6); HEMATOCRIT 32.4 % (35.0-50.0); LYMPHOCYTES 22.7 % (24-44); MCH 33.3 (27-36); MCHC 34.8 g/dl (30-36); MCV 95.6 fl (81-99); MONOCYTES 11.3 % (0-12); NEUTROPHILS 61.6 % (39-80); PLATELET COUNT 115 K/uL (140-440); RBC 3.38 M/ul (4.3-5.7); RDW 15.3 (10.5-15.0)
[2024-03-05 05:38] LABS: ALBUMIN 3.7 g/dL (3.4-5.0); ALBUMIN/GLOBULIN RATIO 1.42 (1.1-2.4); ANION GAP 9.7 (7-21); BILIRUBIN, TOTAL 1.2 ng/dL (0.2-1.0); BUN/CREATININE RATIO 9.23 (6.0-28.6); CALCIUM 8.9 mg/dL (8.5-10.1); CREATININE, SERUM 2.49 mg/dL (0.70-1.30); MAGNESIUM 1.9 mg/dL (1.8-2.4); POTASSIUM 4.7 mmol/L (3.5-5.1); PROTEIN, TOTAL 6.3 g/dL (6.4-8.2)
--- NOTE | 2024-03-05 07:21 | NUR ---
REPORT RECEIVED FROM JACK HYMAN. PT. RESTING IN BED WITH EYES OPEN. RESPIRATIONS EVEN AND UNLABORED. NO S/S OF PAIN/ DISTRESS. CALL LIGHT WITHIN REACH. BOARD UPDATED WITH TODAYS NURSE INFORMATION.
--- NOTE | 2024-03-05 07:24 | NUR ---
VERBAL REPORT RECEIVED FROM JACK RENE. PT RESTS IN BED, AWAKE, NO REQUESTS AT THIS TIME.
--- NOTE | 2024-03-05 08:16 | NUR ---
Board has been updated and patient AM care has been met. New gown was put on patient. Patient refused sitting in his recliner chair for breakfeast. Call light has been placed within reach
--- NOTE | 2024-03-05 10:29 | NUR ---
PT ANSWERS QUESTIONS APPROPRIATELY BUT IS FORGETFUL AND NEEDS RE-ENFORCEMENT OF POC, WOUND CARE AND FLUID RESTRICTION. SCABS, SCARS AND PARTIAL THICKNESS OPENINGS IN VARIOUS STAGES OF HEALING NOTED SCATTERED ACROSS ABDOMEN AND MEDIAL THIGHS. PT REPORTS THEY GET ITCHY AND HE SCRATCHES THEM. SUSPECTED SKIN PICKING DISEASE. ALL LESIONS CLEANSED WITH WOUND CLEANSER AND TRANSPARENT ACRYLIC DRESSINGS APPLIED TO PROTECT WOUNDS. RECOMMEND TO CHANGE EVERY 5 DAYS AND NEEDED WHEN LOOSE OR SOILED. PT RESTS IN BED WITH CALL LIGHT IN REACH.
[2024-03-05] MEDS ORDERED: LACTATED RINGER'S 1,000 ML IV SCH (11:15)
--- NOTE | 2024-03-05 12:30 | NUR ---
Patient is ready for lunch, no request at this time
--- NOTE | 2024-03-05 12:55 | NUR ---
PT UP TO RESTROOM INDEPENDENTLY. PT BACK IN BED AT THIS TIME. CALL LIGHT AND NEEDED ITEMS WITHIN REACH. PT DENIES ANY NEEDS AT THIS TIME.
--- NOTE | 2024-03-05 15:22 | NUR ---
PT RESTING IN BED, EYES CLOSED. RESPIRATIONS EVEN AND UNLABORED. NO S/S OF PAIN/ DISTRESS. CALL LIGHT AND NEEDED ITEMS WITHIN REACH.
--- NOTE | 2024-03-05 17:25 | NUR ---
PT UP TO CHAIR, CHAIR ALARM ON. PT SITTING UP AND EATING EVENING MEAL. NO S/S OF PAIN/ DISTRESS. CALL LIGHT AND NEEDED BELONGINGS WITHIN REACH.
--- NOTE | 2024-03-05 17:34 | NUR ---
NOTED EXCESS DRAINAGE FROM WOUNDS X2 ON LEFT ABDOMEN. DRESSINGS REMOVED AND REPLACED WITH HYDROCOLLOID DRESSING TO BETTER MANAGE DRAINAGE. PT TOLERATED WELL. PT UP TO RECLINER FOR DINNER, CHAIR ALARM IN PLACE.
--- NOTE | 2024-03-05 18:11 | NUR ---
PT BACK IN BED AFTER EATING EVENING MEAL. PT. USED RESTROOM BEFORE GETTING BACK IN BED. RESPIRATIONS EVEN AND UNLABORED. NO S/S OF PAIN/ DISTRESS. CALL LIGHT AND NEEDED ITEMS WITHIN REACH.
--- NOTE | 2024-03-05 21:25 | NUR ---
BED ALARM GOING OFF, pt UP SBA TO BATHROOM TO HAVE BM. pt HAD BM AND UNMEASURED VOID AND RETURNED TO BED. pt THEN SHORTYL AFTER HAD BED ALARM AGAIN GO OFF TO HAVE ANOTHER BM AND SMALL UNMEASURED VOID PER pt. pt A/O TO ALL BUT DATE, FAIRLY STEADY ON FEET BUT REQUIRES CUEING TO SLOW DOWN AT TIMES AND COMPLETE ONE TASK AT A TIME. pt THEN WANTING TO UPDATE CONTACT IN CELL PHONE, PER pt, FELIX ALATORRE HAS A NEW TEMP #. NUMBER OBTAINED FROM SPOUSE LEOLA VIA PHONE AND PUT INTO CONTACTS WITH ASSISTANCE BY THIS RN. NUMBER THEN CALLED BY THIS RN AND pt TALKING TO FELIX ALATORRE ON CELLPHONE. BED ALARMED RESUMED AND pt BACK IN BED, CALL LIGHT IN REACH. PRIMARY RN UPDATED.
--- NOTE | 2024-03-05 22:22 | NUR ---
BED ALARM GOING OFF, pt SITTING ON EDGE OF BED AND FINISHED HIS ICECREAM AND WANTS TO WALK AROUND TO OTHER SIDE OF BED BEFORE GETTING INTO BED, NO FURTHER NEEDS, CALL LIGHT IN REACH. BED ALARM RESUMED.
[2024-03-06] VITALS (11 sets, daily range): BP systolic 93–128; BP diastolic 46–85
--- NOTE | 2024-03-06 00:52 | NUR ---
Pt report received from JACK Michel. Pt is resting with eyes closed, supine in bed, breathing is regular, even, and non-labored.
--- NOTE | 2024-03-06 01:51 | NUR ---
Pt sounds to be talking in his sleep at this time. Side rails up x4, call light in reach.
--- NOTE | 2024-03-06 05:05 | NUR ---
In with pt in response to call light. Pt up to have a BM in the toilet. Denies any dizziness or lightheadedness upon standing (recent VS showed BP with systolic of 93). Advised pt I will reassess his BP when he returns from toileting.
--- NOTE | 2024-03-06 05:19 | NUR ---
bathroom light answered, pt back in bed. bed alarm resumed and call light in reach.
[2024-03-06 05:29] LABS: BASOPHILS 0.8 % (0-2); EOSINOPHILS 3.4 % (0-6); HEMATOCRIT 34.5 % (35.0-50.0); HEMOGLOBIN 11.7 g/dL (12.0-18.0); LYMPHOCYTES 26.7 % (24-44); MCH 32.8 (27-36); MCHC 33.9 g/dl (30-36); MCV 96.7 fl (81-99); MONOCYTES 10.4 % (0-12); NEUTROPHILS 58.7 % (39-80); PLATELET COUNT 137 K/uL (140-440); RBC 3.57 M/ul (4.3-5.7); RDW 15.2 (10.5-15.0)
[2024-03-06 05:46] LABS: ALBUMIN 3.6 g/dL (3.4-5.0); ALBUMIN/GLOBULIN RATIO 1.13 (1.1-2.4); ANION GAP 13.9 (7-21); BILIRUBIN, TOTAL 1.3 ng/dL (0.2-1.0); BUN/CREATININE RATIO 7.94 (6.0-28.6); CALCIUM 8.8 mg/dL (8.5-10.1); CREATININE, SERUM 4.53 mg/dL (0.70-1.30); POTASSIUM 4.9 mmol/L (3.5-5.1); PROTEIN, TOTAL 6.8 g/dL (6.4-8.2)
--- NOTE | 2024-03-06 07:24 | NUR ---
RECIEVED MORNING PT HAND OFF FROM TRUCKING MANAGER RN. PT LAYING IN BED WITH EYES OPEN RESTING COMFORTABLY WATCHING TV WITH CALL LIGHT IN REACH.
--- NOTE | 2024-03-06 08:15 | NUR ---
THIS NURSE IS WORKING PATIENTS PAST DUE ACCOUNTS CLERK TODAY. PATIENT IS UP TO THE RESTROOM RIGHT NOW TRYING TO HAVE A BM. BED CLEANED UP. PATIENT TO CHAIR FOR BREAKFAST. DENIES BRUSHING TEETH RIGHT NOW. CURTAINS OPEN, TV ON. ROOM CLEANED UP. FRESH WATER GIVEN. VITALS TAKEN BEFORE MORNING MEDICATIONS.
--- NOTE | 2024-03-06 08:50 | NUR ---
WORKING PATIENT MAINFRAME SYSTEMS ADMINISTRATOR. THIS PATIENT ATE 100 PERCENT OF HIS BREAKFAST UP IN THE CHAIR. PATIENT PLACED BACK IN BED PER HIS REQUEST. BED ALARM ON. PATIENT HAS FLUIDS AT BEDSIDE. PATIENT ADVISED WE NEED A URINE. PATIENT SAID HE GOT UP AT 4AM AND WOULD LIKE TO REST. LIGHTS OUT.DENIES ANY OTHER CARES.
[2024-03-06] MEDS ORDERED: LACTULOSE 20 GM/30 ML CUP PO SCH (09:00)
--- NOTE | 2024-03-06 09:15 | NUR ---
ENTERED PT ROOM WITH DR. FERREIRA, AND STEVE SANTIAGO. PT SEEMED TO BE MORE WITHDRAWN, AND DROWSY THEN EALIER IN THE MORNING. PT WAS DELAYED TO ANSWER QUESTIONS AND FOLLOW DIRECTIONS. PT IN BED WITH CALL LIGHT IN REACH AND BED ALARM ON FOR PT SAFETY.
[2024-03-06] MEDS ORDERED: LIDOCAINE 2% VISCOUS 6 ML SYR TOP ONE (09:30)
--- NOTE | 2024-03-06 09:30 | NUR ---
THIS RN AND JACK SHAH IN ROOM TO DISCUSS PLAN OF CARE WITH BELLO PLACEMENT. PT BECAME IRRITABLE AND REQUESTING TO PLACE HIS PHONE INTO PERSONAL BELONGINGS BAG AND USE THE BATHROOM. JACK SHAH MENTIONED TO PT HE CAN PUT THE PHONE IN THE BAG. PT REPLIED "NO, I NEED TO MAKE A PHONE CALL". GRABS HIS PERSONAL BELONGINGS BAG AND WALKED INTO BATHROOM. THERE HAS BEEN SUSPISION THAT PT HAS BEEN BRINGING BELONGINGS BAG INTO BATHROOM AND THIS RN NOTICED PERSONAL BELONGINGS BAG UNDER PT BLANKETS AND TRIED TO LOOK BUT PT RECOVERED THE BAG. WHILE PT WAS IN THE BATHROOM AT THIS TIME. THIS RN MUTED TV STAYED IN ROOM. THE PT WAS RUFFLING THROUGH THE PERSONAL BELONGING BAG AND HEARD PILLS IN A BOTTLE. JACK SHAH OPENS BATHROOM DOOR AND PTS BACK IS TO THE DOOR. PT STATES "I FOUND THESE PILLS AND I AM PUTTING THEM IN MY BAG". PABLO ASKED DID YOU TAKE SOME OF THESE PILLS?. PT SAID "YES I TOOK ONE, THEY'RE PRESCRIBED AND THE THE DOCTOR I GOT THEM FROM SAID I COULD TAKE 4 NEEDED." THE BOTTLE RECOMMENDS 1 PILL. PT WAS WALKING OUT OF BATHROOM HE HANDS PABLO CHEW WRAPPED IN A SOCK WELL MEDICATION IN A PLASTIC BAGGIE. THIS RN ASKED PT IS HE WAS TAKING THESE PILLS DURING HIS STAY HERE AND PT SAYS "YES, I HAVE BEEN TAKEN 1-2 EVERYDAY". MD WAS AWARE AND MEDICATION WITH CHEW PLACED IN LOCK BOX IN ROOM.
[2024-03-06] MEDS ORDERED: OXYCODONE HCL 5 MG TAB PO PRN (10:00)
--- NOTE | 2024-03-06 10:15 | NUR ---
BLADDER SCAN SHOWED 465ML. AWARE.
[2024-03-06 10:18] LABS: ANION GAP 15.8 (7-21); BUN/CREATININE RATIO 8.44 (6.0-28.6); CREATININE, SERUM 4.38 mg/dL (0.70-1.30); POTASSIUM 4.8 mmol/L (3.5-5.1)
--- NOTE | 2024-03-06 10:30 | NUR ---
INDWELLING CATHETER PLACED AT THIS TIME. UROJET INSERTED. 16F BELLO, WITH 10ML BALLOON. PT TOLERATED WELL. URINE COLLECTED AND SENT TO LAB. SECRUEMENT DEVICE APPLIED. PT WAS CONFUSED HOW THE USE OF THE BELLO AND FELT HE NEEDED TO GET UP TO URINATE. THIS RN DISCUSSED THE USE OF THE BELLO. BUT PT WAS NOT TRACKING THE CONVERSATION. EDUCATED ON NOT TO PULL ON THE BELLO AND TO CALL IF NEEDED TO USE THE RESTROOM. BED ALARM ON FOR SAFETY.
[2024-03-06 10:48] LABS: BILIRUBIN, URINE NEGATIVE (negative); BLOOD/HGB, URINE NEGATIVE (Negative); KETONE, URINE TRACE (Negative); LEUK ESTERASE, URINE NEGATIVE (negative); NITRITE, URINE NEGATIVE (negative); PH, URINE 5.5 (5-7)
--- NOTE | 2024-03-06 10:48 | NUR ---
KEVIN RN CAME ROOM WITH THIS RN AND PABLO RN TO MEASURE PRESSURE IN BLADDER. RESULTED 7MM. AWARE.
--- NOTE | 2024-03-06 11:00 | NUR ---
THIS RN DISCUSSED WITH MD PT INCREASE IN DROWSYNESS AND NOT FOLLOWING DIRECTIONS WELL. MD ASKED FOR VITALS. WITHIN NORMAL LIMITS. NO NEW ORDERS.
[2024-03-06] MEDS ORDERED: ALBUMIN HUMAN 25% 100 ML BTL IV SCH (11:30)
[2024-03-06] MEDS ORDERED: LACTATED RINGER'S 1,000 ML IV SCH (11:45)
--- NOTE | 2024-03-06 12:13 | NUR ---
WORKING AIRCRAFT PILOT, PATIENT IS AWAKE AND MOVING HIS HANDS AROUND SO THEY DONT GET STIFF PATIENT STATES. PATIENT HAS BELLO IN NOW.
--- NOTE | 2024-03-06 12:39 | NUR ---
WORKING CHAR FILTER OPERATOR, PATIENT UP TO THE SIDE OF THE BED TO EAT LUNCH. BED ALARM PLACED UNDER PATIENT. PATIENTS NURSE IN ROOM NOW.
--- NOTE | 2024-03-06 13:15 | NUR ---
ASSISTED PT FROM BED TO BATHROOM. SBA BACK TO THE BED, LAID DOWN AND HELPED GET TV SETUP TO FOOTBALL CHANNEL. LUNCH TRAY REMOVED. VS STABLE, I&OS COMPLETED. PT CALL LIGHT WITHIN REACH, DENIES ANY FURTHER NEEDS AT THIS TIME.
[2024-03-06 14:24] LABS: ANION GAP 11.1 (7-21); BUN/CREATININE RATIO 9.27 (6.0-28.6); CALCIUM 8.8 mg/dL (8.5-10.1); CREATININE, SERUM 3.99 mg/dL (0.70-1.30); POTASSIUM 5.1 mmol/L (3.5-5.1)
--- NOTE | 2024-03-06 17:29 | NUR ---
NOTED DRAINAGE AND LOOSENING OF THE HYDROCOLLOID DRESSINGS X2 TO THE LEFT ABDOMEN. DRESSINGS REMOVED, WOUND CLEANSED WITH WOUND CLEANSER AND PATTED DRY. NEW HYDROCOLLOID DRESSINGS APPLIED TO EACH WOUND. NOTED EXCESS DRAINAGE UNDER TRANSPARENT ACRYLIC DRESSING OVER UMBILICUS WOUND. DRESSING REMOVED, WOUND CLEANSED WITH WOUND CLEANSER AND PATTED DRY. NEW TRANSPARENT ACRYLIC DRESSING APPLIED. PT TOLERATED WELL.
--- NOTE | 2024-03-06 19:10 | NUR ---
REPORT RECEIVED FROM JACK WILSON AND JACK SHAH. pt SITTING AT SIDE OF BED, PULLING AT IV TUBING. IV SITE ASSESSED, IVF INFUSING WNL. pt CONFUSED. DRESSINGS ASSESSED, CDI OVER ABDOMEN AND THIGHS. CALL LIGHT IN REACH. BED ALARM SET.
[2024-03-06 20:11] LABS: ANION GAP 14.2 (7-21); BUN/CREATININE RATIO 11.27 (6.0-28.6); CALCIUM 9.1 mg/dL (8.5-10.1); CREATININE, SERUM 3.46 mg/dL (0.70-1.30); POTASSIUM 5.2 mmol/L (3.5-5.1)
--- NOTE | 2024-03-06 20:35 | NUR ---
pt SITTING UP AT SIDE OF BED FINISHING DINNER. ASSESSMENT COMPLETE. ORIENTED TO SELF, , LOCATION. REORIENTATION TO DATE, PLAN OF CARE. pt REQUESTS PRN OXYCODONE FOR 8/10 REPORTED BACK PAIN. MEDICATION ADMINISTERED, SEE EMAR. pt UP TO RESTROOM SBA FOR BM. DOES NOT USE CALL LIGHT TO GET BACK TO BED DESPITE INSTRUCTION. 3+ EDEMA BLE, ELEVATED ON PILLOWS. BED ALARM ON. IV SITE FLUSHED WNL, IVF INFUSING. PO FLUIDS PROVIDED.
--- NOTE | 2024-03-06 21:27 | NUR ---
PT BACK TO BED, AFTER SITTING ON THE TOLIET FOR UPWARDS OF 30 MIN. PASSED SOME GAS. TALKED TO HIMSELF; FIDDLED WITH HIS HANDS, ONCE DONE, HE SAID HE WAS DONE, NOTED NO EVIDENCE OF STOOL IN TOLIET, OR ON TOLIET PAPER; BACK TO BED, FEET ELEVATED, BED ALARM PLACED, COVERS PER CHOICE. CALL LIGHT WITHIN HIS REACH.
--- NOTE | 2024-03-06 23:52 | NUR ---
pt SLEEPING, DOES NOT AWAKEN WHEN RN ENTERS ROOM AND FLUSHES IV SITE. BREATHING EQUAL AND UNLABORED. IV ALBUMIN INFUSING ORDERED. CALL LIGHT IN REACH. BED ALARM ON. BELLO DRAINING CONCENTRATED YELLOW URINE IN TUBING.
[2024-03-07] VITALS (9 sets, daily range): BP systolic 114–145; BP diastolic 59–75
--- NOTE | 2024-03-07 00:51 | NUR ---
IV ALBUMIN INFUSION COMPLETE. pt BACK IN BED AFTER UP TO RESTROOM FOR BM WITH BEV PADRON ASSIST. BED ALARM ON. IVF INFUSING WNL. CALL LIGHT IN REACH.
--- NOTE | 2024-03-07 03:24 | NUR ---
IV PUMP ALARMING DISTAL OCCLUSION. pt AWAKENS TO VOICE, SITE ASSESSED. IVF INFUSING WNL. CALL LIGHT IN REACH. BED ALARM ON.
--- NOTE | 2024-03-07 04:15 | NUR ---
pt BACK IN BED WITH BEV PADRON. CONFUSED REGARDING BELLO CATHETER, REORIENTATION AND EDUCATION PROVIDED. BELLO CARE COMPLETE. IV SITE FLUSHED WNL, IVF INFUSING ORDERED. VSS. ABDOMINAL ASSESSMENT COMPLETE. SANGUINOUS DRAINAGE NOTED ON MID ABD DRESSING, ABDOMEN APPEARS MORE DISTENDED FROM START OF SHIFT, ABD FIRM, HYPOACTIVE BTS. pt DENIES PAIN. BED ALARM ON.
[2024-03-07 05:51] LABS: BASOPHILS 0.8 % (0-2); EOSINOPHILS 3.3 % (0-6); HEMATOCRIT 28.6 % (35.0-50.0); HEMOGLOBIN 9.7 g/dL (12.0-18.0); LYMPHOCYTES 18.1 % (24-44); MCH 32.8 (27-36); MCHC 33.9 g/dl (30-36); MCV 96.6 fl (81-99); MONOCYTES 9.8 % (0-12); PLATELET COUNT 84 K/uL (140-440); RBC 2.96 M/ul (4.3-5.7); RDW 15.1 (10.5-15.0)
[2024-03-07 06:06] LABS: ALBUMIN 3.4 g/dL (3.4-5.0); ALBUMIN/GLOBULIN RATIO 1.42 (1.1-2.4); ANION GAP 11.9 (7-21); BILIRUBIN, TOTAL 1.6 ng/dL (0.2-1.0); BUN/CREATININE RATIO 12.77 (6.0-28.6); CALCIUM 8.5 mg/dL (8.5-10.1); CREATININE, SERUM 3.21 mg/dL (0.70-1.30); MAGNESIUM 1.9 mg/dL (1.8-2.4); POTASSIUM 4.9 mmol/L (3.5-5.1); PROTEIN, TOTAL 5.8 g/dL (6.4-8.2)
--- NOTE | 2024-03-07 07:36 | NUR ---
RECEIEVED PT REPORT FROM HYDROCHLORIC MANUFACTURING SUPERVISOR RN, PT LAYING IN BED WITH EYES CLOSED. PT BED ALARM ON AND CALL LIGHT WITHIN REACH FOR PT SAFETY.
--- NOTE | 2024-03-07 09:20 | NUR ---
Pt may go home today. Waiting to speak with Dr. Leo. Denies needs. Ex will assist him.
--- NOTE | 2024-03-07 10:06 | NUR ---
2nd IMM letter taken into Mr. Elkins who is setting up in bed and is awake, alert, and oriented to person, place, time. Letter explained, Mr. Elkins has no questions about the letter at this time, and does sign the letter. A signed copy of the letter is also provided to Mr. Elkins.
--- NOTE | 2024-03-07 13:56 | NUR ---
PT NOT AVAILABLE FOR VISIT. PROVIDED PRAYER.
--- NOTE | 2024-03-07 15:40 | NUR ---
Update from Dr. Nation. Pt will not dc today. Pt needs a paracentesis. He will discuss with Dr. Bautista.
[2024-03-07 17:57] LABS: ANION GAP 10.9 (7-21); BUN/CREATININE RATIO 15.52 (6.0-28.6); CALCIUM 8.7 mg/dL (8.5-10.1); CREATININE, SERUM 2.77 mg/dL (0.70-1.30); POTASSIUM 4.9 mmol/L (3.5-5.1)
--- NOTE | 2024-03-07 18:35 | CONS ---
[facility] [address], [place] [address] Signed DATE OF CONSULTATION: 03/06/2024 REQUESTING PHYSICIAN: Dr. Nation. PROBLEM: Progressive oliguria, ascites related to cirrhosis and chronic ongoing alcoholism. HISTORY: This 63-year-old white man is from [place], [place]. He is accompanied by his daughter and granddaughter at this time. He was admitted to the hospital by Dr. Vaughn on March 01, 2024, with altered sensorium. Paracentesis of 6.4 L was undertaken in the emergency room by Dr. Forde, the emergency room physician. He was noted to have elevated ammonia level, some level of delirium and significant abdominal ascites. The patient has ongoing alcohol use; he lives alone and has been offered treatment, which he has refused. He has most of his care from [facility] the [facility]; he is not a local [employer] member, but is a [employer] member from far away. Additionally, he was seen at [facility] and has been seen in [place] as well. His progress during hospitalization initially by Dr. Vaughn included aggressive diuresis. He was noted to have significant oliguria today and some worsening of his ascites, though no shortness of breath per se. I was called by Dr. Nation and recommended a bladder pressure be undertaken to assess for abdominal compartment syndrome versus hepatorenal syndrome related to his recent aggressive diuresis. The bladder pressure was 7, vast indicative of a non-compartment syndrome related to renal insufficiency. He was administered albumin and is on a scheduled dosage for that. He is feeling better this afternoon and lab studies have improved; his creatinine at 0959 hours was 4.38, now down to 3.99 and urine output has improved. Serum sodium is 132, glucose 117. Ammonia level this morning was 37, 41 on February 28 at the time of admission. His INR is 1.58. Tox screen at presentation showed alcohol level of three ascites included 3375 white cells and 13,9250 red cells, and he was considered possibly to have spine anterior spontaneous bacterial peritonitis at admission and on that basis was treated with antibiotics; his spontaneous bacterial peritonitis is considered cleared at this time. The patient does take Eliquis on the basis of atrial fibrillation. He has had no episodes of hypotension during the course of this hospitalization necessarily. His presenting systolic blood pressure was 109. The lowest blood pressure is 93 systolic at Electronically Signed By: THIERNO HICKS MD 03/07/24 1835 PATIENT NAME: VENUS BRIAN CONSULTATION DATE OF : 58 REPORT #: [id number] PHYSICIAN: THIERNO HICKS MD PCP: DILLON JETT MD REPORT IS CONFIDENTIAL AND NOT TO BE RELEASED WITHOUT AUTHORIZATION [facility] [address] [place] [id number] Signed 04:47 a.m. this morning, now back to 120. The patient has undergone paracentesis 10 years ago in addition to the most recent episode through the emergency room on this hospitalization. At present, the patient has no shortness of breath. No abdominal pain particularly though abdominal distention is certainly known. PAST MEDICAL HISTORY: Noted for atrial fibrillation as previously described. REVIEW OF SYSTEMS: Chart shows no abdominal surgery or chest operation. PHYSICAL EXAMINATION: GENERAL: This is a pleasant white man who is very loquacious, though appears to be oriented and certainly without evidence of withdrawal syndrome nor hepatic encephalopathy at this time. His daughter, granddaughter and another person are attending to him. NECK: Trachea is midline. He has no jugular venous distention. CHEST: Clear. HEART: Irregularly irregular. ABDOMEN: Significant abdominal distention; he is sitting upright. He has no tenderness of the abdominal wall. LABORATORY STUDIES: Today show white count of 7.5, hematocrit 34.5, platelets 137,000. Chem profile currently with sodium 132, creatinine 3.99 (improved), glucose 117. His liver enzymes have been essentially normal along the way, though today alkaline phosphatase elevated to 124, 128, previously 116 and at presentation also 116. ASSESSMENT: The patient did not have oliguria related to abdominal compartment syndrome from tense ascites and therefore, withholding paracentesis was certainly appropriate. Urine output is improved with volume expansion related to albumin. He likely had hepatorenal syndrome in part related to paracentesis in conjunction with aggressive diuresis, though both were likely necessary at that time. Review of the patient's outpatient regimen has shown that he has taken torsemide and not taking additionally spironolactone, that might be reconsidered in his particular situation. The patient has an improved short-term prognosis, but an extremely dismal long-term prognosis as he continues to have ongoing alcohol abuse in the setting of advanced Electronically Signed By: THIERNO HICKS MD 03/07/24 6938 PATIENT NAME: VENUS BRIAN CONSULTATION DATE OF : 58 REPORT #: [id number] PHYSICIAN: THIERNO HICKS MD PCP: DILLON JETT MD REPORT IS CONFIDENTIAL AND NOT TO BE RELEASED WITHOUT AUTHORIZATION [address] [address] Signed cirrhosis with decompensation including ascites and elevated ammonia level. Indication for ascites and his particular situation would be related to abdominal discomfort or dyspnea. Avoidance of paracentesis would be appropriate short of those indications on the basis of worsening his intravascular fluid volume. Maintenance of serum oncotic pressure by albumin is costly, but effective on the short-term. Modification of his outpatient diuretic program might be considered to include spironolactone in addition to torsemide. I will be available if paracentesis should become necessary. MD JOS Lloyd/STEFANIEL /[id number] cc: Dr. Montana VAUGHN MD Copies: ~ Electronically Signed By: THIERNO HICKS MD 03/07/24 1835 PATIENT NAME: VENUS BRIAN CONSULTATION DATE OF : 58 REPORT #: [id number] PHYSICIAN: THIERNO HICKS MD PCP: DILLON JETT MD REPORT IS CONFIDENTIAL AND NOT TO BE RELEASED WITHOUT AUTHORIZATION
--- NOTE | 2024-03-07 19:25 | NUR ---
REPORT RECEIVED FROM JACK WILSON AND JACK SHAH. pt RESTING IN BED WITH EYES CLOSED. BREATHING UNLABORED. BED ALARM ON.
--- NOTE | 2024-03-07 20:00 | NUR ---
DR FERREIRA CALLED FLOOR. ASK ABOUT LAB ORDERS, HE PLANS TO PUT IN ORDER.
--- NOTE | 2024-03-07 21:35 | NUR ---
pt RESTING IN BED WITH EYES CLOSED. BREATHING UNLABORED. BED ALARM ON. pt ALLOWED TO REST AT THIS TIME.
[2024-03-08] VITALS (9 sets, daily range): BP systolic 125–171; BP diastolic 65–85
--- NOTE | 2024-03-08 00:03 | NUR ---
pt AWAKENS TO VOICE. ASSESSMENT COMPLETE. NEW TEGADERM PLACED ABOVE UMBILICUS. SMALL SCAB CLEANSED WITH WOUND CLEANSER. IV SITE FLUSHED WNL, ALBUMIN INFUSING ORDERED. SBA TO RESTROOM FOR BM. BACK IN BED, BELLO CARE COMPLETE. BELLO EMPTIED. CALL LIGHT IN REACH. BED ALARM ON.
--- NOTE | 2024-03-08 00:15 | NUR ---
IV ALBUMIN INFUSION COMPLETE. IV SL WNL. pt RESTING IN BED WITH EYES CLOSED, BREATHING UNLABORED. NO DISTRESS NOTED. BED ALARM ON.
--- NOTE | 2024-03-08 02:15 | NUR ---
pt RESTING IN BED WITH EYES CLOSED. BREATHING EQUAL AND UNLABORED. NO DISTRESS NOTED. BED ALARM ON.
--- NOTE | 2024-03-08 05:32 | NUR ---
PROVIDER EDUCATION SPECIALIST OUT OF pt ROOM. VS COMPLETE, STABLE. BELLO EMPTIED. ABDOMINAL ASSESSMENT COMPLETE. UNCHANGED. pt RESTING IN BED WITH EYES CLOSED, RESPONDS TO VOICE THEN BACK ASLEEP. DENIES PAIN. NO DISTRESS NOTED. IV SITE FLUSHED WNL, IV ALBUMIN INFUSING ORDERED. BED ALARM ON.
[2024-03-08 05:41] LABS: BASOPHILS 0.3 % (0-2); EOSINOPHILS 3.5 % (0-6); HEMATOCRIT 27.2 % (35.0-50.0); HEMOGLOBIN 9.6 g/dL (12.0-18.0); LYMPHOCYTES 24.1 % (24-44); MCH 32.9 (27-36); MCHC 35.1 g/dl (30-36); MCV 93.8 fl (81-99); NEUTROPHILS 63.1 % (39-80); PLATELET COUNT 83 K/uL (140-440); RDW 14.8 (10.5-15.0)
[2024-03-08 06:02] LABS: ALBUMIN 3.9 g/dL (3.4-5.0); ALBUMIN/GLOBULIN RATIO 1.86 (1.1-2.4); ANION GAP 13.8 (7-21); BILIRUBIN, TOTAL 1.5 ng/dL (0.2-1.0); BUN/CREATININE RATIO 17.92 (6.0-28.6); CALCIUM 8.8 mg/dL (8.5-10.1); CREATININE, SERUM 2.12 mg/dL (0.70-1.30); POTASSIUM 4.8 mmol/L (3.5-5.1)
--- NOTE | 2024-03-08 07:38 | NUR ---
RECIEVED REPORT FROM TANK INSPECTOR RN. PT LAYING IN BED RESTING WITH EYES CLOSED BREATHING EVENLY, AND UNLABORED. PT HAS BED ALARM ON AND CALL LIGHT WITHIN REACH.
--- NOTE | 2024-03-08 09:30 | NUR ---
PT RESTING IN BED, EYES CLOSED, BREATHING EVEN AND UNLABORED. BED ALARM ON FOR SAFETY, CALL LIGHT IN REACH
--- NOTE | 2024-03-08 10:45 | NUR ---
PT AWAKE FOR ASSESSMENT. PT IS MORE ALERT AND ORIENTED THAN PREVIOUS DAY. ABLE TO FOLLOW DIRECTIONS AND UNDERSTANING THE PLAN OF CARE. PT IS REQUESTING CATHETER TO BE REMOVED. DISCUSSED WITH PT THAT WILL TALK TO DOCTOR REGARDING THE CATHETER BUT EXPLAINED THE IMPORTANCE OF PEEING IN A URINAL TO MEASURE URINE OUTPUT. PT SAYS HE WILL USE AN URINAL.
--- NOTE | 2024-03-08 11:30 | NUR ---
PT IS RESTING IN BED, COMFORTABLY. DENIES NEEDS AT THIS TIME. FAMILY AT BEDSIDE. WARM BLANKET PROVIDED. CALL LIGHT IN REACH.
--- NOTE | 2024-03-08 12:22 | NUR ---
PT SITTING AT EDGE OF BED EATING LUNCH. PT SPOKE WITH MD ABOUT CONTINUING POC AND WAS AGREEABLE. PT REPORTS NO OTHER CONCERNS AT THIS TIME. PT CALL LIGHT WITHIN REACH AND BED ALARM ON FOR PT SAFETY.
[2024-03-08] MEDS ORDERED: FUROSEMIDE 20 MG TAB PO SCH (13:00)
--- NOTE | 2024-03-08 13:00 | NUR ---
PT LAYING IN BED RESTING WITH EYES CLOSED. BREATHS EQUAL BILATERALY. PT HAS CALL LIGHT WITHIN REACH.
--- NOTE | 2024-03-08 13:50 | NUR ---
PT IN BATHROOM. BEV SEWELL NOTIFIES THIS RN AND JACK SHAH THAT THERE IS BLOOD IN THE TOILET. BLOOD NOTED WITH BM, BUT UNSURE OF SOURCE. WHEN REMOVING CATHETER, THE MEATUS HAD A SCANT AMOUNT OF BLOOD. WHEN DISCUSSING WITH PT, PT SAID "WELL I MIGHT HAVE TUGGED ON IT A BIT".
--- NOTE | 2024-03-08 14:00 | NUR ---
Attempted to speak with Arron this am and he was sleeping, returned later and he was in the bathroom. Aid in the room getting VS and pt is awake now. Denies needs. Alycia will be dcd today.
--- NOTE | 2024-03-08 14:30 | NUR ---
PT RESTING IN BED WITH EYES CLOSED CHEST RISE BILAT. PT BED ALARM ON AND CALL LIGHT WITHIN REACH.
[2024-03-08 15:24] LABS: BUN/CREATININE RATIO 18.91 (6.0-28.6); CALCIUM 9.1 mg/dL (8.5-10.1); CREATININE, SERUM 1.85 mg/dL (0.70-1.30)
--- NOTE | 2024-03-08 16:50 | NUR ---
IN ROOM CHANGE DRESSINGS TO THE LEFT ABD. CLEANSED WITH WOUND SPRAY AND REAPPLIED HYDROCOLLOID DRESSINGS. PT DENIES ANY NEEDS AT THIS TIME. WAS APPRECIATIVE OF THE CARE AND WAS STATING HE WAS GOING TO GET SOME REST. DENIES NEEDS AT THIS TIME. CALL LIGHT IN REACH. BED ALARM ON FOR PT SAFETY.
--- NOTE | 2024-03-08 17:01 | NUR ---
PT IS SITTING ON THE EDGE OF BED. PT HAS SON AND A FAMILY FRIEND VISITING WITH HIM. FAMILY UPDATED ABOUT POC MOVING FORWARD. PT REPORTS NO NEEDS AT THIS TIME AND HAS CALL LIGHT WITHIN REACH.
--- NOTE | 2024-03-08 17:06 | NUR ---
PT LAYING IN BED SLEEPING WITH EYES CLOSED. CHEST RISE EQUAL BILAT. PT CALL LIGHT WITHIN REACH AND BED ALARM ON FOR PT SAFETY.
--- NOTE | 2024-03-08 18:00 | NUR ---
PT LAYING IN BED PT FAMILY IS AT BEDSIDE. PT REQUESTED A WARM BLANKET FROM WARMER BECAUSE THEY WERE COLD. PT THERMOSTAT WAS ALSO INCREASED FOR PT COMFORT. PT HAS NO OTHER CONCERNS AT THIS TIME BED ALARM ON FOR PT SAFETY AND CALL LIGHT WITHIN REACH.
--- NOTE | 2024-03-08 18:31 | NUR ---
GOT PATIENT FRESH GLASS OF ICE WATER AND A LEMON AND AFOGNAK. PUT BED ALARM BACK ON.
--- NOTE | 2024-03-08 19:27 | NUR ---
REPORT RECEIVED FROM DAY SHIFT RN. PT LYING IN BED ALERT AND ORIENTED. WARM BLANKET PROVIDED. NO FURTHER NEEDS. BED ALARM IN PLACE. CALL LIGHT IN REACH.
--- NOTE | 2024-03-08 20:08 | NUR ---
AWAKE, ALERT AND ORIENTED, SBA. UP TO BRP, VOIDED QS YELLOW URINE. BACK TO BED, TOLERATED WELL, BED ALRM BACK ON. TOLERATING LIQUIDS WELL. NO C/O PAIN
--- NOTE | 2024-03-08 20:30 | NUR ---
call light answered, pt asking for help with blankets-assistance provided. no additional needs or concerns verbalized, call light in reach. bed alarm on and call light in reach.
--- NOTE | 2024-03-08 21:12 | NUR ---
call light answered, pt up sba just to monitor steadiness with ambulation. pt remained steady on feet w/o assistance ffrom staff, pt voided 200mls and reported bm. back in bed, bed alarm resumed and call light in reach. no additional needs or concerns verbalized.
--- NOTE | 2024-03-08 22:05 | NUR ---
PT REQUESTING TO REST IN RECLINER. MINIMAL SBA. CHAIR ALARM IN PLACE. BLE ELEVATED. EVENING ASSESSMENT COMPLETE. SCHEDULED MEDS ADMIN PER EMAR. PT DENIES PAIN OR NAUSEA. DENIES SOB. ABD DISTENTION AND BLE EDEMA NOTED. ABD DRESSINGS IN PLACE. PT DENIES QUESTIONS OR CONCERNS. CALL LIGHT IN REACH.
[2024-03-09] VITALS (8 sets, daily range): BP systolic 137–155; BP diastolic 72–87
--- NOTE | 2024-03-09 01:20 | NUR ---
IN ROOM RESPONDING TO CALL LIGHT. PATIENT REPORTING CRAMPING SENSATION IN HANDS AND FEET. DENIES NUMBNESS AND TINGLING. NO TREMORS OR ABNORMAL FLEXION OR EXTENSION NOTED. PRN MEDICATON ADMINISTERED, SEE E-MAR. PATIENT STATED NEED TO VOID. PATIENT AMBULATED TO THE BATHROOM WITHOUT DIFFICULTY. NO OTHER NEEDS IDENTIFIED AT THIS TIME. CALL LIGHT IN REACH.
--- NOTE | 2024-03-09 01:36 | NUR ---
used call light, SBA to brp, voided and had small bm. does own pericare, back to bed, much improved gait, sligth unsteadiness but much more improved, alert and oriented, pleasant and cooperative, follows instructions. Back to bed, tolerated well. no c/o pain
--- NOTE | 2024-03-09 02:43 | NUR ---
IN ROOM RESPONDING TO CALL LIGHT. PATIENT STATES NEED TO VOID. PATIENT AMBULATES TO THE BATHROOM WITHOUT DIFFICULTY. PATIENT STATES 6/10 PAIN, PRIMARILY IN HANDS AND FEET WITH A CRAMPING SENSATION AND MINIMALLY ON EACH SIDE OF THE ABDOMEN. PRN PAIN MEDICATION ADMINISTERED, SEE E-MAR. PATIENT DENIES ADDITIONAL NEEDS AT THIS TIME. CALL LIGHT IN REACH. BED ALARM ACTIVE.
--- NOTE | 2024-03-09 04:05 | NUR ---
IN ROOM ROUNDING ON PATIENT. PATIENT RESTING ON BACK WITH EYES CLOSED. RESPIRATIONS EVEN AND UNLABORED. NO NEEDS IDENTIFIED AT THIS TIME. CALL LIGHT IN REACH. BED ALARM ACTIVE.
--- NOTE | 2024-03-09 05:24 | NUR ---
IN ROOM TO REASSESS PAIN LEVELS, KB RATES PAIN 5/10 WHICH IS AN IMPROVEMENT. PATIENT UP TO THE BATHROOM WITH SURGERY TEACHER. NO NEEDS IDENTIFIED AT THIS TIME. CALL LIGHT IN REACH.
[2024-03-09 06:09] LABS: BASOPHILS 0.5 % (0-2); EOSINOPHILS 2.6 % (0-6); HEMATOCRIT 29.9 % (35.0-50.0); HEMOGLOBIN 10.3 g/dL (12.0-18.0); LYMPHOCYTES 17.4 % (24-44); MCH 32.8 (27-36); MCHC 34.6 g/dl (30-36); NEUTROPHILS 70.5 % (39-80); PLATELET COUNT 95 K/uL (140-440); RBC 3.15 M/ul (4.3-5.7); RDW 15.1 (10.5-15.0)
[2024-03-09 06:28] LABS: ALBUMIN 4.1 g/dL (3.4-5.0); ALBUMIN/GLOBULIN RATIO 1.64 (1.1-2.4); ANION GAP 13.3 (7-21); BUN/CREATININE RATIO 20.27 (6.0-28.6); CALCIUM 9.5 mg/dL (8.5-10.1); CREATININE, SERUM 1.48 mg/dL (0.70-1.30); POTASSIUM 4.3 mmol/L (3.5-5.1); PROTEIN, TOTAL 6.6 g/dL (6.4-8.2)
--- NOTE | 2024-03-09 06:28 | NUR ---
IN ROOM TO ROUND ON PATIENT. PATIENT RESTING ON BACK WITH EYES CLOSED. RESPIRATIONS EVEN AND UNLABORED. NO NEEDS IDENTIFIED AT THIS TIME. CALL LIGHT IN REACH. BED ALARM ACTIVE.
--- NOTE | 2024-03-09 07:07 | NUR ---
Pt report received from RNs Dillon Rubio and Diamond Julio Pt is resting supine in bed, eyes closed, breathing regular, even, and non-labored. Side rails up x4, call light in reach.
[2024-03-09] MEDS ORDERED: SPIRONOLACTONE 25 MG TAB PO SCH (09:00)
--- NOTE | 2024-03-09 13:00 | NUR ---
Spoke with Bal and he plans on dc to home tomorrow. He denies needs. Ex will transport to home.
[2024-03-09 14:11] LABS: ANION GAP 13.4 (7-21); BUN/CREATININE RATIO 18.05 (6.0-28.6); CALCIUM 9.4 mg/dL (8.5-10.1); CREATININE, SERUM 1.44 mg/dL (0.70-1.30); POTASSIUM 4.4 mmol/L (3.5-5.1)
--- NOTE | 2024-03-09 16:44 | NUR ---
Patient requesting pain medication for his head and legs/hand cramps. Neurontin 600mg po and oxycodone 10mg po admin at this time. Patient back in bed, fresh water provided.
--- NOTE | 2024-03-09 19:21 | NUR ---
RECEIVED REPORT FROM JACK MORELAND. PT SLEEPING SOUNDLY IN BED. WHITE BOARD UPDATED. CALL LIGHT WITHIN REACH.
--- NOTE | 2024-03-09 20:16 | NUR ---
BED ALARM ANSWERED. PT UP TO BATHROOM. PT STEADY AND SBA BACK TO BED. PT OUTPUT MEASURED. SOFTWARE TEST AND VALIDATION ENGINEER THEN OBTAINED AND DOCUMENTED VITALS AND I&O. PT STATES NO FURTHER NEEDS AT THIS TIME. CALL LIGHT WITHIN REACH AND BED ALARM ON.
[2024-03-09 20:23] LABS: ANION GAP 10.4 (7-21); BUN/CREATININE RATIO 18.32 (6.0-28.6); CALCIUM 9.3 mg/dL (8.5-10.1); CREATININE, SERUM 1.31 mg/dL (0.70-1.30); POTASSIUM 4.4 mmol/L (3.5-5.1)
--- NOTE | 2024-03-09 22:12 | NUR ---
PT SLEEPING SOUDNLY, AWAKENED FOR HS ASSESSMENT AND MEDS. VSS. REPORTS ONGOING [place], 08/20. DENIED OFFER OF PRN TYLENOL, WANTS TO WAIT UNTIL PRN OXY AVAIL. AMBULATED TO BR W/ SBA, GAIT STEADY. BED ALARM IN PLACE FOR IMPULSIVITY. LSC DIM. HRIR. BTA, ABD VERY DISTENDED AND FIRM. BM (+) W/ BR USE. VOIDS WNL. SMALL SCATTERED SCABS TO BLE. RAC SL WNL. CALL LIGHT WITHIN REACH.
--- NOTE | 2024-03-09 22:58 | NUR ---
PT MEDICATED W/ PRN OXYCODONE FOR C/O ONGOING HEADACHE. BED ALARM IN PLACE. CALL LIGHT WITHIN REACH.
[2024-03-10] VITALS (8 sets, daily range): BP systolic 141–161; BP diastolic 77–83
--- NOTE | 2024-03-10 00:47 | NUR ---
PT SLEEPING SOUNDLY, APPEARS COMFORTABLE. BED ALARM IN PLACE. CALL LIGHT WITHIN REACH.
--- NOTE | 2024-03-10 02:56 | NUR ---
PT SLEEPING, APPEARS COMFORTABLE. CALL LIGHT WITHIN REACH.
--- NOTE | 2024-03-10 03:41 | NUR ---
CALL LIGHT ANSWERED. PT NEEDED TO USE BATHROOM. SPECIAL ED ASSISTANT SBA TO BATHROOM. PT INSTURCTED TO USE BATHROOM CALL LIGHT WHEN FINISHED. BATHROOM CALL LIGHT ANSWERED. PT SBA BACK TO BED. OUTPUT MEASURED. SPECIAL ED ASSISTANT BROUGHT PT PUDDING UPON PT REQUEST. PT SITTING AT EDGE OF BED WITH BED ALARM ON WITH CALL LIGHT IN REACH. PT STATES NO FURTHER NEEDS AT THIS TIME. CALL LIGHT WITHIN REACH.
--- NOTE | 2024-03-10 05:02 | NUR ---
PT SLEEPING SOUNDLY, APPEARS COMFORTABLE. CALL LIGHT WITHIN REACH.
--- NOTE | 2024-03-10 05:21 | NUR ---
FOURDRINIER MACHINE TENDER OBTAINED PT STANDING WEIGHT. VITALS AND I&O OBTAINED AND DOCUMENTED. PT ICE WATER REFILLED. PT STATES NO FURTHER NEEDS AT THIS TIME. CALL LIGHT WITHIN REACH AND BED ALARM ON.
--- NOTE | 2024-03-10 05:31 | NUR ---
CALL LIGHT ANSWERED. PT NEEDED TOUSE BATHROOM. SECURITY POLICE OFFICER SBA TO BAHROOM. PT INSTRUCTED TO USE CALL LIGHT WHEN DONE. BATHROOM CALL LIGHT ANSWERED. PT SBA BACK TO BED. OUTPUT MEASURED. PT STATES NO FURTHER NEEDS AT THIS TIME. CALL LIGHT WITHIN REACH AND BED ALARM ON.
[2024-03-10 05:43] LABS: BASOPHILS 0.3 % (0-2); EOSINOPHILS 4.4 % (0-6); HEMATOCRIT 31.2 % (35.0-50.0); HEMOGLOBIN 10.8 g/dL (12.0-18.0); LYMPHOCYTES 24.9 % (24-44); MCH 32.7 (27-36); MCHC 34.6 g/dl (30-36); MCV 94.8 fl (81-99); MONOCYTES 8.4 % (0-12); PLATELET COUNT 107 K/uL (140-440); RBC 3.29 M/ul (4.3-5.7); RDW 15.5 (10.5-15.0)
[2024-03-10 06:01] LABS: ALBUMIN 3.8 g/dL (3.4-5.0); ALBUMIN/GLOBULIN RATIO 1.23 (1.1-2.4); ANION GAP 14.1 (7-21); BILIRUBIN, TOTAL 1.9 ng/dL (0.2-1.0); BUN/CREATININE RATIO 17.03 (6.0-28.6); CALCIUM 9.2 mg/dL (8.5-10.1); CREATININE, SERUM 1.35 mg/dL (0.70-1.30); POTASSIUM 4.1 mmol/L (3.5-5.1); PROTEIN, TOTAL 6.9 g/dL (6.4-8.2)
--- NOTE | 2024-03-10 06:46 | NUR ---
pt reports waking up in pain, c/o headache. medicated w/ prn oxycodone per emar. abd very distended, firm. [address] to abd.
--- NOTE | 2024-03-10 06:59 | NUR ---
Pt report received from JACK Tinoco. Pt is resting supine in bed, awake A&O. Denies needs at this time and requested he not be woken up for breakfast. White board updated. Call light in reach.
--- NOTE | 2024-03-10 08:34 | NUR ---
PATIENT IN BED AT THIS TIME. SIDE GUIDER WENT INTO PATIENTS ROOM FOR HOURLY ROUNDS. CALL LIGHT WITHIN REACH, NO FURTHER NEEDS AT THIS TIME.
[2024-03-10] MEDS ORDERED: SPIRONOLACTONE25 MG PO (10:10)
[2024-03-10] MEDS ORDERED: LACTULOSE20 GM/30 M PO (10:11)
[2024-03-10] MEDS ORDERED: FUROSEMIDE20 MG PO (10:11)
--- NOTE | 2024-03-10 14:41 | NUR ---
Pt waited for his ride, in his room. Discharge instructions and pt and RX education were reviewed with the pt and his s/o when she arrived. Both verbalized understanding. Lockbox items were returned to pt. Reinforced education on s/sx of infection at the IV site. Pt signed discharge form and was wheeled to the front of the hospital by nursing staff.
== END 2024-03-10 14:00 | disposition home or self-care (01) | DRG 432 ==
LOC: ED 20:14 → MS 20:16
PROVIDERS: Family Medicine; ADMIT Student in an Organized Health Care Education/Training Program; ATTEND Student in an Organized Health Care Education/Training Program
PROC: 0W9G30Z Drainage of Peritoneal Cavity with Drainage Device, Percutaneous Approach (ICD-10-PCS; principal; 2024-03-01)
DX: K70.31 Alcoholic cirrhosis of liver with ascites (principal); K65.2 Spontaneous bacterial peritonitis; N17.9 Acute kidney failure, unspecified; K76.82 Hepatic encephalopathy; I48.91 Unspecified atrial fibrillation; M10.9 Gout, unspecified; E78.5 Hyperlipidemia, unspecified; I10 Essential (primary) hypertension; F10.20 Alcohol dependence, uncomplicated; Z79.899 Other long term (current) drug therapy; Z79.01 Long term (current) use of anticoagulants; Z79.82 Long term (current) use of aspirin
CPT/HCPCS: 36415; 49083; 71045; 76705; 80048; 80053; 80307; 81003; 82140; 82977; 83735; 84100; 84484; 85025; 85610; 87070; 87075; 87205; 89051; 93005; 93010; 99285-25; A9270; G0480; J0696; J1940; J7121; P9047